=== PATIENT | male | born 1960 | race Caucasian/White ===

== ENCOUNTER → 2017-02-27 | Outpatient (CLI) | payer BC, MEDICARE ==
--- NOTE | 2017-02-27 14:35 | P.BASOAP ---
Subjective Principal diagnosis: Morbid obesity Patient doing well today. His surgery was approximately 10 months ago. His current weight is 174 his preoperative weight was 272. He has lost an additional 13 pounds since his last visit. Only intermittent rare episodes of heartburn. He does describe a rash beneath his pannus. No abdominal pain. Objective - Exam Abdomen: Soft, nondistended, nontender, mild rash beneath pannus Assessment/Plan (1) Morbid obesity Narrative/Plan: Check one year labs in April. Continue when necessary antiacid therapy. Patient will further investigate panniculectomy later this year. Plan: Date: Initial Weight: 123.377 kg Initial BMI: Current Weight: Current BMI: Type of Surgery: Total Volume in Band: Previous Volume: Volume Removed: Volume Added: Band Size:
[2017-02-27 15:48] VITALS: BP 119/82; PULSE 63; TEMP 98
== END | disposition home or self-care (01) ==
LOC: BARWHC3 13:36
PROVIDERS: ATTEND Surgery
DX: E66.01 Morbid (severe) obesity due to excess calories (principal)
CPT/HCPCS: 99211

== ENCOUNTER 2017-08-11 21:13 | Emergency (ER) | payer MEDICARE ==
[2017-08-11] MEDS ORDERED: MORPHINE SULFATE 10 MG/ML SYRINGE IM STA (22:35)
--- NOTE | 2017-08-11 22:55 | XR ---
EXAMINATION TYPE: XR Hip RT and AP Pelvis DATE OF EXAM: 08/11/2017 COMPARISON: NONE HISTORY: Right hip pain TECHNIQUE: 3 views FINDINGS: The pelvic ring appears intact. There is lower lumbar spine posterior fusion surgery noted. Sacroiliac joints appear normal. Proximal right femur and hip joint appear intact. Right hip joint s paces are fairly well-maintained. There is no sign of hip dysplasia. There is some spurring and calci fication at the greater trochanter of the right femur consistent with old injury. CONCLUSION: No acute bony abnormality. Calcification at the greater trochanter of the right femur could relate to some calcific bursitis. Normal hip joint space.
[2017-08-12] MEDS ORDERED: KETOROLAC 30 MG/ML 1 ML VIAL IM STA (00:18)
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
[2017-08-12 00:42] VITALS: BP 157/83; PULSE 53; RESP 18; TEMP 97.8
== END 2017-08-12 00:41 | disposition home or self-care (01) ==
LOC: EC 21:13
DX: M25.551 Pain in right hip (principal); J45.909 Unspecified asthma, uncomplicated; J44.9 Chronic obstructive pulmonary disease, unspecified; M70.71 Other bursitis of hip, right hip; G47.30 Sleep apnea, unspecified; Z99.89 Dependence on other enabling machines and devices; Z98.890 Other specified postprocedural states; Z87.891 Personal history of nicotine dependence; Z79.51 Long term (current) use of inhaled steroids; Z79.899 Other long term (current) drug therapy; Z88.1 Allergy status to other antibiotic agents; Z88.8 Allergy status to other drugs, medicaments and biological substances; Z91.013 Allergy to seafood
CPT/HCPCS: 99283 ×2; 96372 ×4; 73502; J2270; J1885

== ENCOUNTER → 2018-07-26 | Outpatient (CLI) | payer MEDICARE ==
--- NOTE | 2018-07-27 17:54 | CT ---
EXAMINATION TYPE: CT brain wo/w con DATE OF EXAM: 07/26/2018 COMPARISON: 06/30/2015 HISTORY: Headache and dizziness. CT DLP: 2153.1 mGycm Automated Exposure Control for Dose Reduction was Utilized. TECHNIQUE: CT scan of the head is performed with IV contrast.,CT scan of the head is performed withou t and with without and with IV Contrast, patient injected with 100ml mL of Isovue M300. FINDINGS: Noncontrast images show no acute intracranial hemorrhage or midline shift. Few punctate s cattered foci of hypoattenuation are seen within the subcortical and periventricular white matter. Th willy are most commonly on the basis of chronic microangiopathy. No vasogenic edema is seen. The ventri cles and sulci are within normal limits in size. Postcontrast images show no suspicious enhancing int raparenchymal mass. The globes are intact and the visualized sinuses are clear. IMPRESSION: Unremarkable contrast enhanced head CT exam. No evidence of intracranial mass.
== END | disposition home or self-care (01) ==
LOC: RADCTMAIN 17:41
PROVIDERS: ATTEND Family Medicine
DX: R51 Headache (principal)
CPT/HCPCS: 82565; 84520; 70470; 36415; Q9967

== ENCOUNTER → 2018-09-10 | Outpatient (CLI) | payer MEDICARE ==
--- NOTE | 2018-09-10 14:23 | US ---
EXAMINATION TYPE: US carotid duplex BILAT DATE OF EXAM: 09/10/2018 COMPARISON: NONE CLINICAL HISTORY: R42 Dizziness, R00.2 Palpitations; Head pain, prior smoker EXAM MEASUREMENTS: RIGHT: Peak Systolic Velocity (PSV) cm/sec ----- Right CCA: 95.5 ----- Right ICA: 58.9 ----- Right ECA: 83.7 ICA/CCA ratio: 0.6 RIGHT: End Diastole cm/sec ----- Right CCA: 28.5 ----- Right ICA: 22.2 ----- Right ECA: 16.3 LEFT: Peak Systolic Velocity (PSV) cm/sec ----- Left CCA: 86.7 ----- Left ICA: 64.8 ----- Left ECA: 59.6 ICA/CCA ratio: 0.7 LEFT: End Diastole cm/sec ----- Left CCA: 27.3 ----- Left ICA: 25.9 ----- Left ECA: 15.4 VERTEBRALS (direction of flow): Right Vertebral: Antegrade Left Vertebral: Antegrade Rhythm: Normal Very mild intimal wall thickening is noted at bilateral carotid bifurcation and PSV is wnl bilaterall y. IMPRESSION: Mild degree of grayscale atheromatous plaquing with no sonographically evident hemodynam ically significant stenosis within either visualized carotid arterial system. Criteria for Assigning % of Stenosis / Diameter reduction (Estimation based on the indirect measurements of the internal carotid artery velocities (ICA PSV). 1. Normal (no stenosis)=ICA PSV < 125 cm/s: ratio < 2.0: ICA EDV<40 cm/s. 2. Less than 50% stenosis=ICA PSV < 125 cm/s: ratio < 2.0: ICA EDV<40 cm/s. 3. 50 to 69% stenosis=ICA PSV of 125 to 230 cm/s: ration 2.0 ? 4.0: ICA EDV 40-100 cm/s. 4. Greater than 70% stenosis to near occlusion= ICA PSV > 230 cm/s: ratio > 4.0: ICA EDV > 100 cm/s. 5. Near occlusion= ICA PSV velocities may be low or undetectable: variable ratio and ICA EDV. 6. Total occlusion=unable to detect flow.
== END | disposition home or self-care (01) ==
LOC: RADECHMAIN 12:25
PROVIDERS: ATTEND Family Medicine
DX: I65.23 Occlusion and stenosis of bilateral carotid arteries (principal); R00.1 Bradycardia, unspecified; R00.0 Tachycardia, unspecified
CPT/HCPCS: 93225; 93226; 93880

== ENCOUNTER → 2018-12-18 | Day surgery (SDC) | payer MEDICARE ==
[2018-12-13 10:06] VITALS: BMI 25.0
--- NOTE | 2018-12-17 13:22 | HP ---
HISTORY AND PHYSICAL His surgery is scheduled for 12/18/2018. Morgan Trevino is a 58-year-old patient seen with progressive right shoulder pain. After having treatment options discussed, he elected to proceed with arthroscopy. Consent regarding the procedure was obtained. Clearance was provided by Dr. Cayden Reardon. PAST MEDICAL HISTORY: His past medical history is hypertension, rad-jjordro-korjveuvi diabetes, COPD. PAST SURGICAL HISTORY: Cholecystectomy, spine surgery, tonsillectomy, bariatric surgery. DAILY MEDICATIONS: 1. Aspirin. 2. Baclofen. 3. Gabapentin. 4. [place]. 5. Tramadol. ALLERGIES: KEFLEX, NEXIUM. SOCIAL HISTORY: He denies current tobacco use. PHYSICAL EVALUATION RIGHT SHOULDER: Flexion 100 degrees, abduction 70 degrees, external rotation is 70 degrees with some weakness. There is tenderness along the anterolateral acromion rotator cuff insertion site. Impingement sign is positive at 90 degrees. His distal neurovascular exam is intact. Radiographs of the shoulder revealed a type 2 anterior acromion and evidence for acromioclavicular joint osteoarthritis. A right shoulder MRI revealed tendinitis and labral tear. IMPRESSION: 1. Right shoulder impingement with possible rotator cuff tear. 2. Right shoulder adhesive capsulitis. 3. Right shoulder acromioclavicular osteoarthritis. 4. Right shoulder labral tear. PLAN: Right shoulder arthroscopy, subacromial decompression, possible arthroscopic rotator cuff repair, Rishi procedure, possible lysis of adhesions and debridement. MMODL / IJN: [id number] /
[~2018-12-18] MED LIST: CLINDAMYCIN 600 MG in DEXTROSE 5% IN WATER 50 ML IVPB ONE; DEXAMETHASONE SOD PHOSPHATE 10 MG/ML 1 ML VIAL IV ONE; HYDROmorphone 0.5 MG/0.5 ML SYRINGE IVP PRN; LACTATED RINGERS 1,000 ML IV ONE; LACTATED RINGERS 1,000 ML IV SCH; LIDOCAINE 1% 20 ML VIAL (10MG/ML) FOR IV START INTRADERMA PRN; MIDAZOLAM (PF) 2 MG/2 ML VIAL IV PRN; ONDANSETRON 4 MG/2 ML VIAL IVP ONE; PROPOFOL 10 MG/ML 20 ML VIAL IV ONE; ROPIVACAINE 5 MG/ML 30 ML VIAL ONE; SCOPOLAMINE 1.5MG/72HR PATCH TRANSDERM ONE; SUCCINYLCHOLINE CHLORIDE 100 MG/5 ML SYR IV ONE; fentaNYL (PF) 50 MCG/ML 2 ML AMP IV ONE; fentaNYL (PF) 50 MCG/ML 2 ML AMP ONE
[2018-12-18 09:21] VITALS: TEMP 96.8
--- NOTE | 2018-12-18 09:29 | P.OP ---
Date of Procedure: 12/18/18 Preoperative Diagnosis: Right shoulder impingement Postoperative Diagnosis: 1. Right shoulder rotator cuff tear 2. Right shoulder impingement 3. Right shoulder acromioclavicular joint osteoarthritis 4. Right shoulder partial long head biceps tendon tear Procedure(s) Performed: 1. Right shoulder arthroscopic rotator cuff repair 2. Right shoulder arthroscopic subacromial decompression 3. Right shoulder arthroscopic Rishi procedure 4. Right shoulder arthroscopic biceps tenotomy Implants: 15.5 Arthrex swivel lock anchor Anesthesia: GETA, regional (Interscalene block) Surgeon: David Benites Engine Pilot #1: Kavon Rahman Estimated Blood Loss (ml): 10 Pathology: none sent Condition: stable Disposition: PACU Indications for Procedure: 58-year-old patient seen with progressive right shoulder pain. After having treatment options discussed, he elected to proceed with arthroscopy. Operative Findings: See description of procedure Description of Procedure: Patient underwent an interscalene block by department of anesthesia. The patient was then taken to the operative suite. The patient underwent a general anesthetic by the department of anesthesia. The patient was placed into a lateral position and secured. There was appropriate padding of the bony prominence. Right shoulder was then prepped and draped in normal sterile orthopedic fashion. We placed the extremity in 10 pounds of longitudinal traction. A posterior incision was now made for a posterior working portal site. The trocar and cannula were inserted into the glenohumeral joint. Arthroscopy was initiated. Spinal needle was now inserted anteriorly, to ascertain the anterior working portal site. An incision was now made in that area, a trocar was inserted followed by a probe. There was some partial tearing of the long head biceps tendon. There was some mild fraying of the labrum. There was a rotator cuff tear visualized from glenohumeral side. There were grade 1 chondromalacia changes of the glenohumeral joint. I performed an arthroscopic biceps tenotomy. I debrided some of the superficial labral fraying with a motorized shaver. The residual labrum appeared stable. Instruments were now removed from glenohumeral joint. Utilizing the posterior working portal site, the trocar and cannula were inserted into the subacromial space. Arthroscopy initiated. I made an incision 2 fingerbreadths lateral to the acromion. I introduced my trocar followed by my ArthroCare ablator. I now began ablating thick subacromial bursal tissue, which exposed the undersurface of the anterior acromion. There was diminished subacromial space. There was a very prominent anterior acromion. A motorized bur was introduced and a subacromial decompression was performed. I also excised some osteophytes off the inferior aspect of the distal clavicle. The AC joint was visualized and noted to be fairly arthritic. The motorized bur was introduced in the anterior portal site and a Rishi procedure was performed without difficulty, decompressing the AC joint nicely. I turned my attention to the rotator cuff. There was a 11.5 cm tear along the anterior aspect of the distal supraspinatus. I debrided the margins with a motorized down to stable tendon tissue. I abraded the footprint with a motorized bur. I passed 2 everted mattress sutures through good bites of rotator cuff tendon. I now punched a hole in the air the footprint. The sutures were not passed through the eyelet of a 5.5 Arthrex swivel lock anchor. The eyelet was introduced and a pre-punch hole. Guevara LOPEZ no tension the sutures were held the anchor position and then introduced anchor compressing the tendon along the footprint nicely. Residual suture limbs were clipped. We had a good stable repair. I injected 1 mL Renue intra-articular. Instruments now removed from the portal sites. All portal sites were approximated with nylon suture. Sterile dressings were applied followed by a shoulder sling. Kavon LOPEZ assisted in this complex case. The patient was awakened, transferred to a bed, and taken to recovery in stable condition.
[2018-12-18 10:16] VITALS: RESP 18
[2018-12-18 11:06] VITALS: BP 131/88; PULSE 55
--- NOTE | 2018-12-20 13:24 | CDI ---
Date: 12/20/18 CDS/Head Of Physics Name: Jessica Montilla Phone: If any questions, call Zoraida Guzman [employer] Account Executive at [phone] Patient Name: Morgan Trevino Admit Date: 12/18/18 Discharge Date: 12/18/18 ATTENTION: The [facility] Coding Staff appreciate your assistance in clarifying documentation. Please respond to the clarification below the line at the bottom and electronically sign. The [facility] Coding staff will review the response and follow-up if needed. Please note: Queries are made part of the Legal Health Record. If you have any questions, please contact the [employer] Account Executive. Dear Dr. Benites, Please provide clarification as to why the interscalene block was provided. In order to select the correct CPT code and follow coding guidelines, please clarifiy if the interscalene was given for postoperative pain control or in additional to the general anesthesia for intraoperative pain control purposes. Thank you for your kind consideration. postoperative pain control MTDD
== END | disposition home or self-care (01) ==
LOC: OR 06:01
PROVIDERS: ATTEND Orthopaedic Surgery
DX: M75.101 Unspecified rotator cuff tear or rupture of right shoulder, not specified as traumatic (principal); M75.41 Impingement syndrome of right shoulder; S46.111A Strain of muscle, fascia and tendon of long head of biceps, right arm, initial encounter; X58.XXXA Exposure to other specified factors, initial encounter; M19.011 Primary osteoarthritis, right shoulder; M94.211 Chondromalacia, right shoulder; M25.711 Osteophyte, right shoulder; I10 Essential (primary) hypertension; E78.5 Hyperlipidemia, unspecified; E11.9 Type 2 diabetes mellitus without complications; R16.0 Hepatomegaly, not elsewhere classified; J44.9 Chronic obstructive pulmonary disease, unspecified; Z98.84 Bariatric surgery status; G47.33 Obstructive sleep apnea (adult) (pediatric); Z87.891 Personal history of nicotine dependence; Z98.1 Arthrodesis status; K21.9 Gastro-esophageal reflux disease without esophagitis; Z79.82 Long term (current) use of aspirin; Z79.891 Long term (current) use of opiate analgesic; Z79.899 Other long term (current) drug therapy; Z88.1 Allergy status to other antibiotic agents; Z88.8 Allergy status to other drugs, medicaments and biological substances
CPT/HCPCS: 29826; 29827; 29824; 64415; C1713; C1765; J1100; J2405; J3010; J2795; J0330; J2704; J2250

== ENCOUNTER 2019-03-19 10:06 | Day surgery (SDC) | payer MEDICARE ==
[2019-03-14 11:14] VITALS: BMI 24.3
[~2019-03-19 10:06] MED LIST changes: -CLINDAMYCIN 600 MG in DEXTROSE 5% IN WATER 50 ML IVPB ONE; -DEXAMETHASONE SOD PHOSPHATE 10 MG/ML 1 ML VIAL IV ONE; -HYDROmorphone 0.5 MG/0.5 ML SYRINGE IVP PRN; -LACTATED RINGERS 1,000 ML IV ONE; -MIDAZOLAM (PF) 2 MG/2 ML VIAL IV PRN; -ONDANSETRON 4 MG/2 ML VIAL IVP ONE; -PROPOFOL 10 MG/ML 20 ML VIAL IV ONE; -ROPIVACAINE 5 MG/ML 30 ML VIAL ONE; -SCOPOLAMINE 1.5MG/72HR PATCH TRANSDERM ONE; -SUCCINYLCHOLINE CHLORIDE 100 MG/5 ML SYR IV ONE; -fentaNYL (PF) 50 MCG/ML 2 ML AMP IV ONE; -fentaNYL (PF) 50 MCG/ML 2 ML AMP ONE
[2019-03-19 10:30] VITALS: TEMP 97.8
[2019-03-19] MEDS ORDERED: LACTATED RINGERS 1,000 ML IV ONE (10:37)
[2019-03-19 10:38] LABS: Glucose,Whole Blood 71 mg/dL (75-99)
[2019-03-19] MEDS ORDERED: LIDOCAINE 1% INJ 10MG/ML (20 ML MDV) ONE (11:28)
[2019-03-19] MEDS ORDERED: PROPOFOL 10 MG/ML 20 ML VIAL IV ONE (11:28)
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
--- NOTE | 2019-03-19 11:48 | P.PCN ---
Date of Procedure: 03/19/19 Procedure(s) Performed: PREOPERATIVE DIAGNOSIS: Abdominal pain, change in bowel habits POSTOPERATIVE DIAGNOSIS: Mild gastritis, small gastric polyp, diverticulosis PROCEDURE: 1. EGD with biopsy 2. Colonoscopy ANESTHESIA: MAC SURGEON: Burton Taylor M.D. SPECIMENS: Antrum, polyp ENDOSCOPIC PROCEDURE: The patient was on the endoscopy table in the left decubitus position. The Olympus gastroscope was inserted into the oropharynx and passed under direct visualization to the region of the third portion of the duodenum. From that point the scope was slowly withdrawn inspecting all surfaces carefully. There were no neoplastic inflammatory or polypoid lesions throughout the duodenum. The pylorus was widely patent. The stomach was carefully inspected. There was gastritis present. The patient also had a polyp at the start of the sleeve gastrectomy staple line. A biopsy of that took place. A biopsy of the antrum took place to rule out H. pylori. No retroflexion could take place. No visible hiatal hernia was seen. The esophagus was then carefully examined. There were no neoplastic inflammatory or polypoid lesions throughout the visualized esophagus. The patient was kept on the endoscopy table in the left decubitus position. The Olympus colonoscope was inserted into the anus and passed under direct visualization to the base of the cecum. The appendiceal orifice was visualized. From that point the scope was slowly withdrawn inspecting all surfaces carefully. There were no neoplastic inflammatory or polypoid lesions throughout the cecum, ascending, transverse, descending, sigmoid and rectum. There was mild diverticulosis noted. Digital rectal examination was normal. The patient was taken to the recovery room in stable condition per anesthesia guidelines. RECOMMENDATIONS: Increase fiber. Await biopsy results. Continue antiacids.
[2019-03-19 12:35] VITALS: BP 128/61; PULSE 56; RESP 18
== END 2019-03-19 12:46 | disposition home or self-care (01) ==
LOC: ORWHC2ENDO 10:06
PROVIDERS: ATTEND Surgery
DX: K57.90 Diverticulosis of intestine, part unspecified, without perforation or abscess without bleeding (principal); K29.50 Unspecified chronic gastritis without bleeding; K31.7 Polyp of stomach and duodenum; E78.5 Hyperlipidemia, unspecified; K21.9 Gastro-esophageal reflux disease without esophagitis; R55 Syncope and collapse; G47.30 Sleep apnea, unspecified; Z87.891 Personal history of nicotine dependence; E11.9 Type 2 diabetes mellitus without complications; E66.9 Obesity, unspecified; Z68.24 Body mass index [BMI] 24.0-24.9, adult; I10 Essential (primary) hypertension; Z87.01 Personal history of pneumonia (recurrent); J44.9 Chronic obstructive pulmonary disease, unspecified; R41.3 Other amnesia; Z90.49 Acquired absence of other specified parts of digestive tract; Z98.84 Bariatric surgery status; I25.2 Old myocardial infarction; M19.90 Unspecified osteoarthritis, unspecified site; Z99.89 Dependence on other enabling machines and devices; M21.371 Foot drop, right foot; Z80.3 Family history of malignant neoplasm of breast; Z80.6 Family history of leukemia; Z79.891 Long term (current) use of opiate analgesic; Z79.51 Long term (current) use of inhaled steroids; Z79.899 Other long term (current) drug therapy; Z88.1 Allergy status to other antibiotic agents; Z88.8 Allergy status to other drugs, medicaments and biological substances; Z91.09 Other allergy status, other than to drugs and biological substances
CPT/HCPCS: 88305; 45378; 43239; J2001; J2704

== ENCOUNTER → 2019-07-03 | Outpatient (CLI) | payer MEDICARE ==
--- NOTE | 2019-07-03 15:27 | XR ---
EXAMINATION TYPE: XR chest 2V DATE OF EXAM: 07/03/2019 COMPARISON: 01/19/16 HISTORY: Shortness of breath TECHNIQUE: Frontal and lateral views of the chest are obtained. FINDINGS: Scattered senescent parenchymal changes noted. Hyperinflation compatible with COPD. No evidence for infiltrate. No evidence for atelectasis. Heart size is stable. Mediastinal structures are stable and grossly unremarkable. No evidence for hilar prominence. Degenerative changes dorsal spine. IMPRESSION: 1. No evidence for acute pulmonary disease.
== END | disposition home or self-care (01) ==
LOC: RADXRMAIN 15:04
PROVIDERS: ATTEND Family Medicine
DX: J44.9 Chronic obstructive pulmonary disease, unspecified (principal)
CPT/HCPCS: 71046

== ENCOUNTER → 2019-07-16 | Outpatient (CLI) | payer MEDICARE ==
[2019-07-16 15:02] LABS: African American GFR (CKD) >90 (>60 ml/min/1.73 sqM); Blood Urea Nitrogen 20 mg/dL (9-20)
--- NOTE | 2019-07-16 15:32 | CT ---
EXAMINATION TYPE: CT brain w con DATE OF EXAM: 07/16/2019 COMPARISON: CT brain July 26, 2018 HISTORY: headaches, memory loss, dizziness. no injury. CT DLP: 1090.4 mGycm Automated exposure control for dose reduction was used. CONTRAST: CT scan of the head is performed with IV Contrast, patient injected with 100 mL of Isovue 300. FINDINGS: There is no abnormal enhancing mass or midline shift identified. The ventricles and sulci are within normal limits in size. Meng-white matter differentiation is preserved. Persistent hypoplastic left A 1 segment with filling of A2 segment due to patent anterior communicating artery, normal variant. Und er pneumatized left mastoid air cells are redemonstrated versus the opposite right-side. The globes a re intact and the visualized sinuses are clear. IMPRESSION: No abnormal enhancing mass or midline shift. No significant change from prior CT
== END | disposition home or self-care (01) ==
LOC: RADCTMAIN 14:09
PROVIDERS: ATTEND Family Medicine
DX: R51 Headache (principal)
CPT/HCPCS: 82565; 84520; 70460; 36415; Q9967

== ENCOUNTER → 2019-07-25 | Outpatient (CLI) | payer MEDICARE ==
--- NOTE | 2019-07-26 01:09 | MR ---
EXAMINATION TYPE: MR brain wo con DATE OF EXAM: 07/25/2019 COMPARISON: 07/16/[address] scan HISTORY: Headaches, memory loss Standard multiplanar, multisequence MRI departmental protocol Multiplanar, multisequence images of the brain were acquired. Diffusion weighted imaging was performe d. FINDINGS: Ventricles of normal size. There is no mass effect nor midline shift. There is no sign of i ntracranial hemorrhage. Diffusion images are normal. There is no evidence of cortical infarct. Brains tem appears normal. Cerebellum appears normal. There are 3 or 4 small 2 to 3 mm foci of increased sig nal on the FLAIR images in the white matter of the frontal lobes and left posterior temporal lobe. Corpus callosum appears normal. Sella turcica appears normal. IMPRESSION: There are a few very small white matter high signal foci of doubtful significance. Otherwise negative exam. No evidence of cortical infarct.
== END ==
LOC: RADMRIMAIN 21:22
PROVIDERS: ATTEND Family Medicine
DX: R51 Headache (principal); R90.82 White matter disease, unspecified
CPT/HCPCS: 70551

== ENCOUNTER → 2019-08-29 | Outpatient (CLI) | payer MEDICARE ==
--- NOTE | 2019-08-29 11:47 | ECHOF ---
Referral Reason:R07.9 Chest Pain MEASUREMENTS -------- HEIGHT: 170.2 cm WEIGHT: 72.6 kg BP: 134/78 RVIDd: 3.0 cm (< 3.3) IVSd: 1.3 cm (0.6 - 1.1) LVIDd: 4.1 cm (3.9 - 5.3) LVPWd: 1.3 cm (0.6 - 1.1) IVSs: 1.5 cm LVIDs: 2.8 cm LVPWs: 1.3 cm LA Diam: 3.4 cm (2.7 - 3.8) LAESV Index (A-L): 21.25 ml/m Ao Diam: 3.1 cm (2.0 - 3.7) AV Cusp: 2.4 cm (1.5 - 2.6) MV EXCURSION: 14.577 mm (> 18.000) MV EF SLOPE: 57 mm/s (70 - 150) EPSS: 0.4 cm MV E Mingo: 0.43 m/s MV DecT: 426 ms MV A Mingo: 0.63 m/s MV E/A Ratio: 0.69 TAPSE: 28.76 mm FINDINGS -------- Sinus rhythm. This was a technically good study. The left ventricular size is normal. There is mild concentric left ventricular hypertrophy. Overa ll left ventricular systolic function is normal with, an EF between 60 - 65 %. The diastolic fillin g pattern is normal for the age of the patient 5.71. The right ventricle is normal in size. Normal LA size by volume 22+/-6 ml/m2. The right atrium is normal in size. Interatrial and interventricular septum intact. The aortic valve is trileaflet and appears structurally normal. There is trace to mild mitral regurgitation. Trace tricuspid regurgitation present. There is no pulmonic regurgitation present. The aortic root size is normal. Normal inferior vena cava with normal inspiratory collapse consistent with estimated right atrial pre ssure of 5 mmHg. There is no pericardial effusion. CONCLUSIONS -------- 1. Sinus rhythm. 2. This was a technically good study. 3. The left ventricular size is normal. 4. There is mild concentric left ventricular hypertrophy. 5. Overall left ventricular systolic function is normal with, an EF between 60 - 65 %. 6. The diastolic filling pattern is normal for the age of the patient 5.71 7. The right ventricle is normal in size. 8. Normal LA size by volume 22+/-6 ml/m2. 9. The right atrium is normal in size. 10. Interatrial and interventricular septum intact. 11. The aortic valve is trileaflet and appears structurally normal. 12. There is trace to mild mitral regurgitation. 13. Trace tricuspid regurgitation present. 14. There is no pulmonic regurgitation present. 15. The aortic root size is normal. 16. Normal inferior vena cava with normal inspiratory collapse consistent with estimated right atrial pressure of 5 mmHg. 17. There is no pericardial effusion. EMPLOYEE TRAINING SPECIALIST: Erika Gamboa RDCS
== END | disposition home or self-care (01) ==
LOC: RADECHMAIN 08:11
PROVIDERS: ATTEND Family Medicine
DX: I34.0 Nonrheumatic mitral (valve) insufficiency (principal); R07.9 Chest pain, unspecified
CPT/HCPCS: 93306

== ENCOUNTER → 2019-09-12 | Outpatient (CLI) | payer MEDICARE ==
[~2019-09-12] MED LIST changes: -LACTATED RINGERS 1,000 ML IV SCH; -LIDOCAINE 1% 20 ML VIAL (10MG/ML) FOR IV START INTRADERMA PRN; +REGADENOSON 0.4 MG/5 ML SYRINGE IV ONE
--- NOTE | 2019-09-12 13:22 | EST ---
EXERCISE STRESS DATE OF SERVICE: 09/12/2019 AGE: 59 SEX: Male HT: 67" WT: 166 pounds PROTOCOL: Lexiscan Cardiolite STAGE: DURATION OF EXERCISE: HEART RATE REST: 46 BLOOD PRESSURE REST: 132/79 MAXIMUM HEART RATE ACHIEVED: 67 MAXIMUM BLOOD PRESSURE: 120/73 85% MPHR: 138 100% MPHR: 162 METS: INDICATIONS: Chest pain. CLINICAL INFORMATION: Baseline EKG revealed normal sinus rhythm without significant ST-T changes. With Lexiscan administration, heart rate changed of 46 to 67 beats per minute. Blood pressure changed from 132/79 to 120/73. EKG did not reveal any ST-segment changes to indicate ischemia. By EKG criteria, this is an unremarkable stress test with Lexiscan administration. The nuclear scan results which are more pertinent will be reported by the radiologist. MMTUAN / JOSEN: [id number] /
--- NOTE | 2019-09-12 13:31 | NM ---
EXAMINATION TYPE: NM stress lexiscan cardiolite DATE OF EXAM: 09/12/2019 COMPARISON: NONE HISTORY: Chest pain TECHNIQUE: After the intravenous administration of 10.17 mCi Tc 99m Sestamibi - Cardiolite resting S PECT images acquired 55 minutes post injection. The patient received 0.4mg Lexiscan, 26.1 mCi Tc 99m Sestamibi - Stress images obtained [address] injection FINDINGS: Review of stress and rest SPECT images demonstrates no distinct perfusion abnormality. Very mild phy siologic apical thinning. Gated analysis shows normal wall motion with an estimated left ventricular ejection fraction of 56 %. TID is within normal limits calculated at 0.95. IMPRESSION: No scintigraphic evidence for reversible ischemia.
== END ==
LOC: RADNMMAIN 07:49
PROVIDERS: ATTEND Family Medicine
DX: R07.9 Chest pain, unspecified (principal)
CPT/HCPCS: 93017; 78452; A9500

== ENCOUNTER 2020-09-01 12:06 | Emergency (ER) | payer MEDICARE ==
--- NOTE | 2020-09-01 13:14 | XR ---
EXAMINATION TYPE: XR chest 2V DATE OF EXAM: 09/01/2020 COMPARISON: 07/03/2019 HISTORY: 60-year-old male difficulty breathing and fevers TECHNIQUE: PA and lateral views FINDINGS: Heart normal size. Aorta and pulmonary vasculature within normal limits. New airspace disease in the right mid lung. No pleural effusions. IMPRESSION: New infiltrate at the right mid lung. Correlate for pneumonia.
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
[2020-09-01 13:57] LABS: Basophils # (A) 0.1 k/uL (0-0.2); Basophils % (A) 0 %; Eosinophils # (A) 0.1 k/uL (0-0.7); Eosinophils % (A) 1 %; HCT 44.9 % (39.0-53.0); HGB 14.9 gm/dL (13.0-17.5); Lymphocytes # (A) 1.2 k/uL (1.0-4.8); Lymphocytes % (A) 7 %; MCH 30.9 pg (25.0-35.0); MCHC 33.3 g/dL (31.0-37.0); Mean Platelet Volume 8.9; Monocytes # (A) 0.8 k/uL (0-1.0); Monocytes % (A) 5 %; Neutrophils # (A) 14.4 k/uL (1.3-7.7); Neutrophils % (A) 86 %; Platelet Count 232 k/uL (150-450); RBC 4.84 m/uL (4.30-5.90); RDW 12.4 % (11.5-15.5); WBC 16.7 k/uL (3.8-10.6)
[2020-09-01 14:04] LABS: MCV 92.8 fL (80.0-100.0)
[2020-09-01 14:06] LABS: ALT 13 U/L (4-49); AST 25 U/L (17-59); African American GFR (CKD) >90 (>60 ml/min/1.73 sqM); Albumin 3.9 g/dL (3.5-5.0); Alkaline Phosphatase 83 U/L (38-126); Anion Gap 5 mmol/L; Blood Urea Nitrogen 17 mg/dL (9-20); Calcium 8.8 mg/dL (8.4-10.2); Carbon Dioxide 25 mmol/L (22-30); Chloride 106 mmol/L (98-107); Creatine Kinase 135 U/L (55-170); Glucose 89 mg/dL (74-99); INR 0.9 (<1.2); Magnesium 1.9 mg/dL (1.6-2.3); Non-African American GFR(CKD) >90 (>60 ml/min/1.73 sqM); Potassium 4.1 mmol/L (3.5-5.1); Sodium 136 mmol/L (137-145); Total Bilirubin 0.8 mg/dL (0.2-1.3); Total Protein 6.8 g/dL (6.3-8.2)
[2020-09-01 14:07] LABS: Partial Thromboplastin Time 24.4 sec (22.0-30.0); Prothrombin Time 9.8 sec (9.0-12.0)
[2020-09-01] MEDS ORDERED: AZITHROMYCIN 500 MG TAB PO STA (14:53)
[2020-09-01 15:04] VITALS: BP 136/89; PULSE 83; RESP 17; TEMP 98.2
== END 2020-09-01 15:29 | disposition home or self-care (01) ==
LOC: EC 12:06
DX: J18.9 Pneumonia, unspecified organism (principal); J44.9 Chronic obstructive pulmonary disease, unspecified; K21.9 Gastro-esophageal reflux disease without esophagitis; G47.30 Sleep apnea, unspecified; I25.2 Old myocardial infarction; Z79.51 Long term (current) use of inhaled steroids; Z79.899 Other long term (current) drug therapy; Z88.1 Allergy status to other antibiotic agents; Z91.018 Allergy to other foods; Z88.8 Allergy status to other drugs, medicaments and biological substances; Z87.891 Personal history of nicotine dependence; Z99.89 Dependence on other enabling machines and devices
CPT/HCPCS: 36415; 71046; 80053; 82550; 83605; 83735; 83880; 84484; 85025; 85610; 85730; 87040; 93005; 99285

== ENCOUNTER → 2020-09-07 | Outpatient (CLI) | payer MEDICARE | END | disposition home or self-care (01) | LOC: LABWHC1 11:16 | PROVIDERS: ATTEND Family Medicine | DX: Z03.818 Encounter for observation for suspected exposure to other biological agents ruled out (principal) | CPT/HCPCS: U0003; C9803 ==

== ENCOUNTER → 2020-11-11 | Outpatient (CLI) | payer MEDICARE ==
--- NOTE | 2020-11-11 16:10 | CTL ---
EXAMINATION TYPE: CT Low Dose Lung DATE OF EXAM ORDERED: 11/11/2020 HISTORY: 60-year-old male Personal history of tobacco use.. Lung cancer screening CT DLP: 89.[address] CTDI: 2.6 mGy Automated exposure control for dose reduction was used. SCREENING VISIT: Baseline COMPARISON: HRCT from 03/18/2015 TECHNIQUE: Low dose computed tomography scan was performed through the chest at 1 mm thick sections a nd reconstructed images in the coronal and sagittal plane. Additional coronal MIP reconstruction was performed. CT DIAGNOSTIC QUALITY: Satisfactory FINDINGS: Heart normal size without pericardial effusion. Minimal scattered LAD and RCA coronary artery calcifi cations. Ectatic ascending aorta 3.7 cm. In dimension arch vessel branching anatomy. Scattered nonenlarged mediastinal lymph nodes. No thoracic lymphadenopathy by CT size criteria. Moderate to advanced upper lung centrilobular and paraseptal emphysema. Scattered subpleural reticula tion suggesting interstitial scarring. Scattered small calcified granulomas. 6 mm posterior right lower lobe pulmonary nodule, axial image 12 and coronal MIP series 10 image 44. Unable to identify on the previous HRCT. No consolidation or pleural effusion. There is a moderate-sized hilar hernia with surgical material related to sleeve gastrectomy. Some of the surgical material is also included in the hiatal hernia. Bones: Mild anterior endplate spondylosis mid to lower thoracic spine. IMPRESSION: 1. LungRADS Category 3 (probably benign, 1-2% chance of malignancy). 6 mm right lower lobe pulmonary nodule. 2. COPD with moderate to advanced upper lung emphysema and prior granulomatous disease. 3. Moderate-sized hiatal hernia. Some of the surgical material of the patient's sleeve gastrectomy is included in the hernia. RECOMMENDATION: 1. Six-month follow-up low-dose CT chest for the 6 mm right lower lobe pulmonary nodule. 2. If the patient's hiatal hernia there is symptomatic (for instance, if the patient is experiencing gastroesophageal reflux disease), refer the patient back to their surgeon. 3. Smoking cessation. CT LUNG RAD AND CT CHEST RECOMMENDATION: Lung-Rad 3 Probably Benign: 6 month follow-up LDCT.
== END | disposition home or self-care (01) ==
LOC: RADCTMAIN 13:34
PROVIDERS: ATTEND Family Medicine
DX: Z12.2 Encounter for screening for malignant neoplasm of respiratory organs (principal); R91.1 Solitary pulmonary nodule; Z87.891 Personal history of nicotine dependence
CPT/HCPCS: 71271

== ENCOUNTER 2021-07-15 16:58 | Observation (INO) | payer MEDICARE ==
[2021-07-15 18:00] VITALS: TEMP 99.3
[2021-07-15 19:45] VITALS: RESP 16
[2021-07-15] MEDS ORDERED: NITROGLYCERIN SL TABS 0.4 MG TAB SUBLINGUAL STA (19:47)
[2021-07-15 20:30] LABS: Basophils # (A) 0.1 k/uL (0-0.2); Basophils % (A) 1 %; Eosinophils # (A) 0.1 k/uL (0-0.7); Eosinophils % (A) 1 %; HCT 42.7 % (39.0-53.0); HGB 13.7 gm/dL (13.0-17.5); Lymphocytes # (A) 1.1 k/uL (1.0-4.8); Lymphocytes % (A) 12 %; MCH 30.7 pg (25.0-35.0); MCHC 32.2 g/dL (31.0-37.0); MCV 95.5 fL (80.0-100.0); Mean Platelet Volume 8.9; Monocytes # (A) 0.5 k/uL (0-1.0); Monocytes % (A) 6 %; Neutrophils # (A) 6.9 k/uL (1.3-7.7); Neutrophils % (A) 79 %; Platelet Count 223 k/uL (150-450); RBC 4.46 m/uL (4.30-5.90); RDW 12.3 % (11.5-15.5); WBC 8.8 k/uL (3.8-10.6)
[2021-07-15 20:41] LABS: ALT 16 U/L (4-49); AST 27 U/L (17-59); African American GFR (CKD) >90 (>60 ml/min/1.73 sqM); Albumin 3.8 g/dL (3.5-5.0); Alkaline Phosphatase 81 U/L (38-126); Anion Gap 6 mmol/L; Blood Urea Nitrogen 19 mg/dL (9-20); Calcium 9.1 mg/dL (8.4-10.2); Carbon Dioxide 26 mmol/L (22-30); Chloride 105 mmol/L (98-107); Glucose 86 mg/dL (74-99); Magnesium 1.8 mg/dL (1.6-2.3); Non-African American GFR(CKD) >90 (>60 ml/min/1.73 sqM); Potassium 3.9 mmol/L (3.5-5.1); Sodium 137 mmol/L (137-145); Total Bilirubin 0.8 mg/dL (0.2-1.3); Total Protein 6.7 g/dL (6.3-8.2)
[2021-07-15 20:44] LABS: Partial Thromboplastin Time 23.7 sec (22.0-30.0); Prothrombin Time 10.4 sec (9.0-12.0)
--- NOTE | 2021-07-15 21:56 | XR ---
EXAMINATION TYPE: XR chest 2V DATE OF EXAM: 07/15/2021 COMPARISON: Chest radiograph 09/01/2020 HISTORY: Chest pain. TECHNIQUE: Frontal and lateral views of the chest are obtained. FINDINGS: There is increasing reticular opacity over the right greater than left lower lungs. There is increasing opacity over the right hilum. No pleural effusion, or pneumothorax seen. The cardiac silhouette size is within normal limits. The re is flattening of the diaphragm. The osseous structures are intact. IMPRESSION: Increasing opacity over the right hilum. Although this may relate to prominent pulmonary vasculature given the background emphysematous changes underlying mass cannot be excluded and a chest CT should be considered.
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
[2021-07-15] MEDS ORDERED: NITROGLYCERIN SL TABS 0.4 MG TAB SUBLINGUAL PRN (22:55)
[2021-07-16 00:11] VITALS: BP 139/93
[2021-07-16] MEDS ORDERED: ACETAMINOPHEN TAB 500 MG TAB PO STA (01:58)
[2021-07-16] MEDS ORDERED: GABAPENTIN 400 MG CAP PO STA (01:58)
[2021-07-16] MEDS ORDERED: BACLOFEN 10 MG TAB PO STA (01:59)
[2021-07-16] MEDS ORDERED: ALBUTEROL NEBULIZED 2.5 MG/3 ML INHALATION PRN (07:40)
[2021-07-16] MEDS ORDERED: SYMBICORT 160-4.5 MCG INHALER INHALATION SCH (08:00)
[2021-07-16] MEDS ORDERED: FAMOTIDINE 20 MG TAB PO SCH (09:00)
[2021-07-16] MEDS ORDERED: ASPIRIN 325 MG TAB PO SCH (09:00)
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
[2021-07-16 09:42] LABS: Glucose,Whole Blood 81 mg/dL (75-99)
[2021-07-16 10:56] VITALS: PULSE 76
[2021-07-16 14:55] LABS: Chol/HDL Ratio 3.4; LDL Cholesterol,Calculated 83.6 mg/dL (0.0-131.0); VLDL Calculation 19.4 mg/dL (5.00-40.00)
--- NOTE | 2021-07-16 17:06 | HP ---
HISTORY AND PHYSICAL COMBINATION HISTORY AND PHYSICAL AND DISCHARGE SUMMARY: CHIEF COMPLAINT: Chest pain. HISTORY OF PRESENT ILLNESS: This 61-year-old gentleman with a past medical history of multiple medical problems, including asthma, COPD, diabetes, GERD, hypertension, memory impairment, DJD, being followed by Dr. Cayden Reardon in the outpatient setting, was admitted with chest pain. The pain was felt in the lower part of the chest, ongoing for the last several days. The patient also had pain in the left upper chest. Patient came to [facility]. Troponins were negative. Cardiology evaluated the patient and recommended outpatient followup. Basic labs were also negative. The patient apparently had a stress test last year, also. There is no history of any fever, rigors or chills. No history of headache, loss of consciousness, seizures. PAST MEDICAL HISTORY: History of asthma, COPD, diabetes, GERD, hypertension, memory impairment, history of DJD. HOME MEDICATIONS: Reviewed. They include zinc, Aleve, Tums, Tylenol, vitamin C, calcium, vitamin D3, vitamin A, multivitamin, Pepcid, Symbicort, Requip, Singulair, Lioresal, Neurontin, Ventolin HFA. Doses are noted. ALLERGIES: KEFLEX,, NEXIUM, FISH OIL. FAMILY HISTORY: History of leukemia in the family. SOCIAL HISTORY: Previous history of smoking. No current smoking or alcohol intake. REVIEW OF SYSTEMS: ENT: No diminished hearing. No diminished vision. CARDIOVASCULAR SYSTEM: As mentioned earlier. RESPIRATORY SYSTEM: As mentioned earlier. GI: As mentioned earlier. : No dysuria. NERVOUS SYSTEM: No numbness, weakness. ALLERGY/IMMUNOLOGY: No asthma or hay fever. MUSCULOSKELETAL: As mentioned earlier. HEMATOLOGY/ONCOLOGY: No history of anemia. ENDOCRINE: As mentioned earlier. CONSTITUTIONAL: As mentioned earlier. DERMATOLOGY: Negative. RHEUMATOLOGY: Negative. PSYCHIATRY: As mentioned earlier. PHYSICAL EXAMINATION: Patient alert and oriented x3. Pulse is 76, blood pressure 139/63, respirations 16, temperature 98.3, pulse ox 96% on room air. HEENT: Conjunctivae normal. NECK: No jugular venous distention. CARDIOVASCULAR: S1, S2 muffled. RESPIRATION: Breath sounds diminished at the bases. No rhonchi. No crackles. ABDOMEN: Soft, nontender. No mass palpable. LEGS: No edema. No swelling. NERVOUS SYSTEM: Higher functions as mentioned earlier. Moves all 4 limbs. No focal motor or sensory deficit. LYMPHATICS: No lymph node palpable in neck, axillae or groin. SKIN: No ulcer, rash, bleeding. JOINTS: No active deforming arthropathy. LABS: CBC, CMP within normal limits. ASSESSMENT: 1. Chest pain, possible unstable angina. Rule out coronary artery disease. Myocardial infarction ruled out. 2. History of asthma, chronic obstructive pulmonary disease. 3. Diabetes mellitus, type 2. 4. Gastroesophageal reflux disease. 5. Hypertension. 6. History of memory impairment. 7. History of degenerative joint disease. 8. History of pneumonia. 9. History of sleep apnea. 10.History of back surgery. 11.History of bariatric surgery. 12.Remote history of nicotine dependence. RECOMMENDATIONS AND DISCUSSION: In this 61-year-old gentleman who presented with multiple complex medical issues, at this time I recommend to continue current treatment. Cardiology recommended discharge home and continue the rest of the medications. Patient is keen on going home. Moreover, the troponins are also negative. Recommend outpatient followup with Cardiology and a possible stress test also. A copy of this dictation is being forwarded to Dr. Cayden Reardon, with whom I also recommend close followup in the outpatient setting. MMODL / IJN: [id number] / MTDAlba
[2021-07-16] MEDS ORDERED: MONTELUKAST 10 MG TAB PO SCH (21:00)
== END 2021-07-16 12:00 | disposition home or self-care (01) ==
LOC: EC 16:58 → 6NMEDSUR 23:19
PROVIDERS: ADMIT Hospitalist; ATTEND Hospitalist
DX: R07.89 Other chest pain (principal); Z20.822 Contact with and (suspected) exposure to COVID-19; E11.9 Type 2 diabetes mellitus without complications; E78.5 Hyperlipidemia, unspecified; I10 Essential (primary) hypertension; I25.2 Old myocardial infarction; J44.9 Chronic obstructive pulmonary disease, unspecified; K21.9 Gastro-esophageal reflux disease without esophagitis; M19.90 Unspecified osteoarthritis, unspecified site; Z79.51 Long term (current) use of inhaled steroids; Z79.899 Other long term (current) drug therapy; Z80.6 Family history of leukemia; Z87.01 Personal history of pneumonia (recurrent); Z87.891 Personal history of nicotine dependence; Z98.84 Bariatric surgery status
CPT/HCPCS: 99285; 36415; 93005; 85379; 80061; 80053; 83735; 84484 ×2; 85025; 85610; 85730; 87635; 71046; G0378 ×2

== ENCOUNTER → 2021-08-09 | Outpatient (CLI) | payer MEDICARE ==
--- NOTE | 2021-08-09 20:40 | CT ---
EXAMINATION TYPE: CT chest wo con DATE OF EXAM: 08/09/2021 COMPARISON: X-ray 07/15/2021, CT scan 11/11/2020 HISTORY: COPD, right lung nodule on xray CT DLP: 360.8 mGycm. Automated Exposure Control for Dose Reduction was Utilized. TECHNIQUE: CT scan of the thorax is performed without IV contrast. FINDINGS: LUNGS: Moderate to advanced upper lung centrilobular and paraseptal emphysema. Scattered subpleural r eticulation suggesting interstitial scarring. Scattered small calcified granulomas. 6 mm posterior ri ght lower lobe pulmonary nodule. No consolidation or pleural effusion. No pneumothorax. Subsegmental changes are seen posteriorly in the right upper and lower lobe groundglass changes are seen also not ed scattered throughout the lungs. 6 mm right lower lobe pulmonary nodule appears stable. Additional 2 mm nodule left lower lobe axial image 4. Subpleural nodularity measuring 6 mm left upper lobe appea rs somewhat more elongated on mid coronal image and likely inflammatory. Suspect a calcified nodule l eft upper lobe image 30 likely representing tiny granuloma. Additional 1 to 2 mm nodule axial image 2 9 left upper lobe. 2 mm subpleural nodule right upper lobe axial image #40. 2 mm nodule superior segm ent left lower lobe axial image 44. . MEDIASTINUM: Lack of IV contrast is noted to limit evaluation for mediastinal and especially hilar ad enopathy. There are no definitive greater than 1 cm hilar or mediastinal lymph nodes. No cardiomega ly or pericardial effusion is seen. Thoracic aorta measures 3. Centimeters compatible with ectasia. C oronary artery calcifications noted. OTHER: There is a moderate-sized hilar hernia with surgical material related to sleeve gastrectomy. Some of the surgical material is also included in the hiatal hernia. Hypertrophic and degenerative ch trice of spine. Postcholecystectomy changes noted. Ectasia versus mild aneurysmal dilation of the sple cornelius artery noted maximal dimension of 9 mm IMPRESSION: 1. Advanced emphysematous changes with multiple subcentimeter pulmonary nodules as discussed above. T he previously noted 6 mm right-sided pulmonary nodule stable. There are additional 5 mm areas of nodu larity which may not have been present on the prior exam which are too small to characterize but like ly benign. 2. There is a 8 mm subpleural nodule left upper lobe which appears somewhat more elongated on the cor onal view and may represent an area of inflammatory change rather than pulmonary nodule. Given its gr eater than 6 mm, recommend a short-term follow-up 3-[address] to confirm stability. Alternatively, P ET scan could be obtained. 3. Areas of groundglass changes and subsegmental consolidation may be on the basis of an atelectasis correlate clinically to exclude pneumonitis. 4. 9 mm splenic artery aneurysm.
== END | disposition home or self-care (01) ==
LOC: RADCTMAIN 18:22
PROVIDERS: ATTEND Family Medicine
DX: J44.9 Chronic obstructive pulmonary disease, unspecified (principal); R91.8 Other nonspecific abnormal finding of lung field
CPT/HCPCS: 71250

== ENCOUNTER → 2021-08-10 | Outpatient (CLI) | payer MEDICARE ==
--- NOTE | 2021-08-11 11:31 | ECHOF ---
Referral Reason:I10 Essential (primary) hypertension MEASUREMENTS -------- HEIGHT: 170.2 cm WEIGHT: 77.1 kg BP: 136/85 IVSd: 1.0 cm (0.6 - 1.1) LVIDd: 4.8 cm (3.9 - 5.3) LVPWd: 1.1 cm (0.6 - 1.1) EDV(Teich): 105 ml IVSs: 1.3 cm LVIDs: 3.2 cm LVPWs: 1.5 cm %IVS Thck: 31 % ESV(Teich): 40 ml EF(Teich): 62 % %FS: 34 % SV(Teich): 65 ml LA Diam: 3.6 cm (2.7 - 3.8) RVIDd: 3.1 cm (< 3.3) LALs A4C: 4.9 cm LAAs A4C: 16.7 cm LAESV A-L A4C: 48 ml LAESV MOD A4C: 47 ml LALs A2C: 5.0 cm LAAs A2C: 13.8 cm LAESV A-L A2C: 32 ml LAESV MOD A2C: 31 ml LAESV(A-L): 39 ml LAESV Index (A-L): 20.89 ml/m Ao Diam: 3.3 cm (2.0 - 3.7) AV Cusp: 1.9 cm (1.5 - 2.6) EPSS: 0.3 cm MV E [place]: 0.72 m/s MV DecT: 279 ms MV Dec [place]: 2.6 m/s MV A [place]: 0.56 m/s MV E/A Ratio: 1.30 MV PHT: 81 ms AV Vmax: 1.19 m/s AV maxP.62 mmHg AV Vmax: 1.21 m/s AV Vmean: 0.81 m/s AV maxP.83 mmHg AV meanP.93 mmHg AV Env.Ti: 309 ms AV VTI: 25.0 cm MV EF SLOPE: 110.96 mm/s (70 - 150) MV EXCURSION: 19.44 mm (> 18.000) FINDINGS -------- Sinus rhythm. This was a technically adequate study. The left ventricular size is normal. There is borderline concentric left ventricular hypertrophy. Overall left ventricular systolic function is normal with, an EF between 60 - 65 %. The right ventricle is normal in size. Normal LA size by volume 22+/-6 ml/m2. The right atrium is normal in size. Interatrial and interventricular septum intact. The aortic valve is trileaflet, and appears structurally normal. No aortic stenosis or regurgitation. There is trace to mild mitral regurgitation. The tricuspid valve appears structurally normal. Unable to estimate RVSP due to inadequate TR jet s pectral doppler profile. The pulmonic valve was not well visualized. The aortic root size is normal. Normal inferior vena cava with normal inspiratory collapse consistent with estimated right atrial pre ssure of 5 mmHg. There is no pericardial effusion. CONCLUSIONS -------- 1. The left ventricular size is normal. 2. There is borderline concentric left ventricular hypertrophy. 3. Overall left ventricular systolic function is normal with, an EF between 60 - 65 %. 4. The aortic valve is trileaflet, and appears structurally normal. No aortic stenosis or regurgitati on. 5. There is trace to mild mitral regurgitation. 6. There is no pericardial effusion. [employer]FT MAINTENANCE TECHNICIAN: Erika Gamboa RDCS
== END | disposition home or self-care (01) ==
LOC: RADECHMAIN 13:48
PROVIDERS: ATTEND Family Medicine
DX: I34.0 Nonrheumatic mitral (valve) insufficiency (principal); I51.7 Cardiomegaly; I10 Essential (primary) hypertension
CPT/HCPCS: 93306

== ENCOUNTER 2021-08-12 13:22 | Emergency (ER) | payer MEDICARE ==
[2021-08-12 13:40] VITALS: RESP 18; TEMP 98.1
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
[2021-08-12] MEDS ORDERED: CASIRIVIMAB (REGN10933) (EUA) 600 MG, IMDEVIMAB (REGN10987) (EUA) 600 MG in SODIUM CHLO... IVPB ONE (14:30)
[2021-08-12] MEDS ORDERED: SODIUM CHLORIDE 0.9% 50 ML IVPB ONE (14:30)
[2021-08-12 15:10] VITALS: BP 124/88; PULSE 66
== END 2021-08-12 15:58 | disposition home or self-care (01) ==
LOC: EC 13:22
DX: U07.1 COVID-19 (principal); J44.9 Chronic obstructive pulmonary disease, unspecified; E11.9 Type 2 diabetes mellitus without complications; K21.9 Gastro-esophageal reflux disease without esophagitis; I10 Essential (primary) hypertension; I25.2 Old myocardial infarction; M19.90 Unspecified osteoarthritis, unspecified site; Z88.1 Allergy status to other antibiotic agents; Z98.84 Bariatric surgery status; Z90.49 Acquired absence of other specified parts of digestive tract; Z87.891 Personal history of nicotine dependence
CPT/HCPCS: 99283

== ENCOUNTER → 2021-09-12 | Outpatient (CLI) | payer MEDICARE ==
[~2021-09-12] MED LIST changes: -REGADENOSON 0.4 MG/5 ML SYRINGE IV ONE; +REGADENOSON 0.4 MG/5 ML SYRINGE IV PRN
--- NOTE | 2021-09-12 10:33 | P.STRESS ---
- Stress Test Note Stress Test Results/Findings: Exam Performed: Exam Date: Reason for Exam: Height: Weight: Protocol: Stage: Duration of Exercise: Resting Heart Rate: Resting Blood Pressure: Maximum Achieved Heart Rate: Maximum Achieved Blood Pressure: 85% PMHR: 100% PMHR: METS: Technologist Comment: Stress Test Results/Findings: At baseline EKG showed normal sinus rhythm, normal axis, no significant ST or T- wave abnormalities. Patient recieved IV infusion of Lexiscan 0.4mg and at peak infusion EKG showed no significant change from baseline. Conclusions: 1. Normal EKG response to Lexiscan infusion 2. Nuclear imaging to be reported separately.
--- NOTE | 2021-09-12 14:14 | NM ---
EXAMINATION TYPE: NM stress lexiscan cardiolite DATE OF EXAM: 09/12/2021 COMPARISON: Prior stress tests September 12, 2019 HISTORY: Chest pain. TECHNIQUE: After the intravenous administration of 9.7 mCi Tc 99m Sestamibi - Cardiolite resting SPE CT images acquired 60 minutes post injection. The patient received 0.4mg Lexiscan, 25.4 mCi Tc 99m Sestamibi - Stress images obtained [address] injection FINDINGS: Review of stress and rest SPECT images demonstrates no distinct perfusion abnormality. Gated analysi s shows normal wall motion with an estimated left ventricular ejection fraction of 55 %. IMPRESSION: No scintigraphic evidence for reversible ischemia. No significant change from prior.
== END | disposition home or self-care (01) ==
LOC: RADNMMAIN 08:20
PROVIDERS: ATTEND Family Medicine
DX: R07.9 Chest pain, unspecified (principal)
CPT/HCPCS: 93017; 78452; A9500; J2785

== ENCOUNTER → 2021-11-01 | Outpatient (CLI) | payer MEDICARE | END | disposition home or self-care (01) | LOC: LABWHC1 13:47 | PROVIDERS: ATTEND Nurse Practitioner Family | DX: Z20.822 Contact with and (suspected) exposure to COVID-19 (principal) | CPT/HCPCS: 87502; U0003; C9803 ==

== ENCOUNTER → 2022-01-13 | Outpatient (CLI) | payer MEDICARE ==
--- NOTE | 2022-01-15 18:29 | PE ---
EXAMINATION TYPE: PET CT fusion skull to thigh DATE OF EXAM: 01/13/2022 COMPARISON: Chest CT August 09, 2021 HISTORY: Abnormal CT, solitary pulmonary nodule. TECHNIQUE: Following the intravenous administration of 10.26 mCi of F-18 FDG, whole body images are performed from the skull base to the midthigh. Images are reviewed on the computer in the coronal, a xial, and sagittal planes. Reconstructed rotating images are created on independent workstation and reviewed on the computer. A localization and attenuation correction CT is performed in conjunction with the PET scan. Blood glucose level equals 67. SCAN: Initial Scan FINDINGS: SKULL BASE AND NECK: No areas of abnormal hypermetabolic uptake. CHEST, MEDIASTINUM, AND HILAR REGION: No areas of abnormal hypermetabolic uptake. Prior nodules all n oted 6 mm or smaller in size on prior CT report on background of at least moderate underlying emphyse matous change are less well seen on PET CT versus diagnostic CT. ABDOMEN AND PELVIS: No adrenal masses. No abnormal hypermetabolic uptake. Normal excretion. OSSEOUS STRUCTURES: No abnormal hypermetabolic uptake. OTHER CT: Prominent pulmonary arteries consistent with underlying pulmonary artery hypertension. Mild to moderate coronary artery calcification. Surgical changes from gastric sleeve. Small size hiatal hernia. Cholecystectomy clips are present. Si gmoid colonic diverticulosis. Mildly enlarged prostate consistent with BPH. Occasional scattered pelv ic phleboliths. Postsurgical change lumbosacral junction. IMPRESSION: No suspicious hypermetabolic uptake to suggest malignancy. Consider follow-up CT in 6-12 months time to document subcentimeter nodular stability.
== END | disposition home or self-care (01) ==
LOC: RADPETMAIN 13:20
PROVIDERS: ATTEND Family Medicine
DX: R91.1 Solitary pulmonary nodule (principal)
CPT/HCPCS: 78815; A9552

== ENCOUNTER → 2022-02-21 | Outpatient (CLI) | payer MEDICARE ==
--- NOTE | 2022-02-21 13:32 | XR ---
EXAM TYPE: LUMBAR SPINE X RAY SERIES COMPARISON: NONE HISTORY: Pain TECHNIQUE: 4 views are submitted. FINDINGS: Alignment is anatomic. The pedicles are intact. The transverse processes are intact. There is grad e 2 spondylolisthesis L4 on L5. Postsurgical changes and diffuse osteopenia noted. There is surgical change in the gallbladder fossa. Moderate degenerative disc disease at levels L1-L5 most marked at L 4-L5. Multilevel facet arthropathy. IMPRESSION: 1. Multilevel moderate degenerative disc disease most marked at L4-L5 with facet arthropathy. There i s a grade 2 anterolisthesis of L4 relative to L5..
== END | disposition home or self-care (01) ==
LOC: RADXRMAIN 13:10
PROVIDERS: ATTEND Family Medicine
DX: M51.16 Intervertebral disc disorders with radiculopathy, lumbar region (principal); M47.26 Other spondylosis with radiculopathy, lumbar region; M43.16 Spondylolisthesis, lumbar region
CPT/HCPCS: 72110

== ENCOUNTER → 2022-03-15 | Outpatient (CLI) | payer MEDICARE ==
--- NOTE | 2022-03-16 02:32 | MR ---
EXAMINATION TYPE: MR lumbar spine wo con DATE OF EXAM: 2 views COMPARISON: None HISTORY: Back pain Multiplanar multi echo imaging of the lumbar spine with no contrast. There is metal artifact from posterior fusion surgery at L4-5. There is a minimal L4-5 spondylolisthe sis that measures 4 mm. There is 8 mm L4-5 spondylolisthesis. There is narrowing of the spinal canal at L4-5 due to the subluxation deformity. Exam limited by metal artifact. Sacroiliac joints are intac t. No lumbar paraspinal mass. No compression fracture. No evidence of focal bone destruction. There is degenerative disc space narrowing throughout the lumbar spine. IMPRESSION: L4-5 and L5-S1 spondylolisthesis. There is L4-5 spinal stenosis due to the subluxation deformity. Pre vious surgery. No fractures seen. Mild posterior disc bulging from L1 to L4 without significant impin gement on the spinal canal.
== END | disposition home or self-care (01) ==
LOC: RADMRIMAIN 00:24
PROVIDERS: ATTEND Nurse Practitioner Family
DX: M51.36 Other intervertebral disc degeneration, lumbar region (principal); M43.16 Spondylolisthesis, lumbar region; M48.061 Spinal stenosis, lumbar region without neurogenic claudication
CPT/HCPCS: 72148

== ENCOUNTER 2022-08-07 22:29 | Emergency (ER) | payer MEDICARE ==
[2022-08-07 22:34] VITALS: RESP 18; TEMP 98.4
[2022-08-07 23:07] LABS: ALT 16 U/L (4-49); AST 25 U/L (17-59); African American GFR (CKD) >90 (>60 ml/min/1.73 sqM); Albumin 4.2 g/dL (3.5-5.0); Alkaline Phosphatase 84 U/L (38-126); Anion Gap 11 mmol/L; Basophils # (A) 0.1 k/uL (0-0.2); Basophils % (A) 1 %; Blood Urea Nitrogen 23 mg/dL (9-20); Carbon Dioxide 28 mmol/L (22-30); Chloride 102 mmol/L (98-107); Eosinophils # (A) 0.4 k/uL (0-0.7); Eosinophils % (A) 5 %; Glucose 97 mg/dL (74-99); HCT 45.9 % (39.0-53.0); Lymphocytes # (A) 2.2 k/uL (1.0-4.8); Lymphocytes % (A) 34 %; MCH 31.2 pg (25.0-35.0); MCHC 32.8 g/dL (31.0-37.0); MCV 95.1 fL (80.0-100.0); Mean Platelet Volume 9.3; Monocytes # (A) 0.6 k/uL (0-1.0); Monocytes % (A) 9 %; Neutrophils # (A) 3.2 k/uL (1.3-7.7); Neutrophils % (A) 48 %; Non-African American GFR(CKD) 86 (>60 ml/min/1.73 sqM); Platelet Count 224 k/uL (150-450); Potassium 4.2 mmol/L (3.5-5.1); RBC 4.83 m/uL (4.30-5.90); RDW 12.2 % (11.5-15.5); Sodium 141 mmol/L (137-145); Total Bilirubin 0.4 mg/dL (0.2-1.3); Total Protein 6.8 g/dL (6.3-8.2); WBC 6.6 k/uL (3.8-10.6)
[2022-08-07 23:13] LABS: INR 0.9 (<1.2)
[2022-08-07 23:14] LABS: Partial Thromboplastin Time 23.9 sec (22.0-30.0); Prothrombin Time 10.2 sec (9.0-12.0)
--- NOTE | 2022-08-07 23:16 | XR ---
EXAMINATION TYPE: XR chest 2V DATE OF EXAM: 08/07/2022 COMPARISON: 07/15/2021 HISTORY: Chest pain TECHNIQUE: 2 views FINDINGS: Heart is normal. Lungs are clear of consolidation. There are no hilar masses. The bony thor ax is intact. No pleural effusion. IMPRESSION: No active cardiopulmonary disease. There is clearing of the mild infiltrates of atelectas is in the lower lung sullivan compared to old exam. There is improved inspiration.
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
[2022-08-08 05:14] VITALS: BP 131/88; PULSE 6
== END 2022-08-08 05:14 | disposition home or self-care (01) ==
LOC: EC 22:29
DX: R07.9 Chest pain, unspecified (principal); R06.02 Shortness of breath; J44.9 Chronic obstructive pulmonary disease, unspecified; E11.9 Type 2 diabetes mellitus without complications; K21.9 Gastro-esophageal reflux disease without esophagitis; I10 Essential (primary) hypertension; I25.2 Old myocardial infarction; M19.90 Unspecified osteoarthritis, unspecified site; Z87.891 Personal history of nicotine dependence; Z88.1 Allergy status to other antibiotic agents; Z88.3 Allergy status to other anti-infective agents; Z91.013 Allergy to seafood; Z79.899 Other long term (current) drug therapy; Z79.51 Long term (current) use of inhaled steroids; Z20.822 Contact with and (suspected) exposure to COVID-19
CPT/HCPCS: 36415; 71046; 80053; 83735; 84484; 85025; 85610; 85730; 87635; 93005; 99285

== ENCOUNTER → 2022-09-20 | Outpatient (CLI) | payer MEDICARE ==
--- NOTE | 2022-09-21 07:27 | CA ---
Transthoracic Echo Report Name: Morgan Trevino Age: 62 Gender: M : 1960 Exam Date: 09/20/2022 13:30 Exam Location: [facility] Ht (in): 67 Wt (lb): 170 Ordering Physician: Cayden Reardon MD Attending/Referring Phys: DENNY, Alexys Tube Teller Kayleen Persaud, ALIYAH Procedure CPT: Indications: J44.9 CHRONIC OBSTRUCTIVE PULMONARY DISEASE Cardiac Hx: Technical Quality: Contrast 1: N/A Total Dose (mL): Contrast 2: Total Dose (mL): MEASUREMENTS (Male / Female) Normal Values 2D ECHO LV Diastolic Diameter PLAX 5.1 cm 4.2 - 5.9 / 3.9 - 5.3 cm LV Systolic Diameter PLAX 3.8 cm IVS Diastolic Thickness 0.7 cm 0.6 - 1.0 / 0.6 - 0.9 cm LVPW Diastolic Thickness 1.2 cm 0.6 - 1.0 / 0.6 - 0.9 cm LV Relative Wall Thickness 0.4 RV Internal Dim ED PLAX 2.2 cm LA Systolic Diameter LX 3.1 cm 3.0 - 4.0 / 2.7 - 3.8 cm LA Volume 64.1 cm??? 18 - 58 / 22 - 52 cm??? M-MODE Aortic Root Diameter MM 2.7 cm LA Systolic Diameter MM 3.6 cm LA Ao Ratio MM 1.3 MV E Point Septal Separation 0.4 cm AV Cusp Separation MM 2.0 cm DOPPLER MV Area PHT 4.2 cm??? Mitral E Point Velocity 45.9 cm/s Mitral A Point Velocity 60.3 cm/s Mitral E to A Ratio 0.8 MV Deceleration Time 180.9 ms MV E' Velocity 5.7 cm/s Mitral E to MV E' Ratio 8.0 TR Peak Velocity 178.7 cm/s TR Peak Gradient 12.8 mmHg Right Ventricular Systolic Press 17.8 mmHg FINDINGS Left Ventricle Left ventricular ejection fraction is estimated at 55 %. Left ventricular cavity size normal. Right Ventricle Normal right ventricular size and function. Right ventricular systolic pressure within normal limits. Right Atrium Normal right atrial size. Left Atrium Mildly increased left atrial volume. Mitral Valve Structurally normal mitral valve. Mild mitral regurgitation. Aortic Valve Trileaflet aortic valve. Tricuspid Valve Structurally normal tricuspid valve. Mild tricuspid regurgitation. Pulmonic Valve Structurally normal pulmonic valve. Pericardium Normal pericardium. Aorta Normal size aortic root and proximal ascending aorta. CONCLUSIONS Normal LV size and systolic function. Mild mitral and tricuspid insufficiency. No pericardial effusion Previewed by: Dr. Corina Desai MD (Electronically Signed) Final Date: 21 September 2022 07:26
== END | disposition home or self-care (01) ==
LOC: RADECHMAIN 13:17
PROVIDERS: ATTEND Family Medicine
DX: I08.1 Rheumatic disorders of both mitral and tricuspid valves (principal); J44.9 Chronic obstructive pulmonary disease, unspecified
CPT/HCPCS: 93306

== ENCOUNTER → 2022-09-22 | Outpatient (CLI) | payer MEDICARE ==
--- NOTE | 2022-09-22 11:06 | CA ---
Lexiscan Nuclear Stress Test Report Name: Morgan Trevino Exam Date: 09/22/2022 09:20 Exam Location: [facility] Ht (in): 67 Wt (lb): 170 BSA: 1.89 Ordering Phys: Cayden Reardon MD Referring Phys: CAYDEN REARDON,, Technologist: Everardo Barahona Age: 62 Gender: M : 1960 Procedure CPT: Indications: I20.9 angina pectoris ICD-10 Codes: Patient History: CHEST PAIN, DIFFICULTY IN BREATHING, NUMBNESS IN FACE/NECK, FAMILY HX OF HEART DISEASE, PRIOR NC, COPD Medications: DUONEB, GABAPENTIN, MONTELKAST, [place]STATIN, PEPCID, ROPINIROLE, SYMBICORT, TRAMADOL, VENTOLIN, ZYRTEC Meds past 24 hrs: Pretest Chest Pain: STRESS TEST Lexiscan Protocol Exercise Duration (min:sec): 01:[address] Depressions (mm): Angina Score: Wu Score: Resting HR (bpm): 56 Peak HR (bpm): 88 Resting BP (mmHg): 144 / 100 Peak BP (mmHg): 144 / 100 MPHR: 159 Target HR: 135 % MPHR: 55 METS: 1.0 Total Dose: Peak Dose: Atropine: Double Product: 34141 BP Response: Stress Termination: INFUSION COMPLETE Stress Symptoms: LIGHT HEADED Stress Summary: ECG ANALYSIS Resting ECG: Stress ECG: CONCLUSIONS Baseline EKG revealed normal sinus rhythm without significant ST-T changes. With Lexiscan administration the heart rate changing from 59-86 bpm and the blood pressure changed from 144/100-137/89. Patient had transient lightheadedness. No significant arrhythmia was noted. This is a unremarkable Lexiscan stress test by EKG criteria. The nuclear scan results which are more pertinent will be reported by the radiologist Dr. Corina Desai MD (Electronically Signed) Final Date: 22 September 2022 11:05
--- NOTE | 2022-09-22 13:14 | NM ---
EXAMINATION TYPE: NM stress lexiscan cardiolite DATE OF EXAM: 09/22/2022 COMPARISON: 09/12/2021 HISTORY: 62-year-old male I20.9, angina pectoris TECHNIQUE: After the intravenous administration of 9.5 mCi Tc 99m Sestamibi - Cardiolite resting SPE CT images acquired 45 minutes post injection. The patient received 0.4mg Lexiscan, 26.7 mCi Tc 99m Sestamibi - Stress images obtained [address] injection FINDINGS: Review of stress and rest SPECT images demonstrates decreased perfusion at the apex. However, this is more pronounced on rest images suggesting attenuation artifact. There is also fixed defect along the basal septal and inferior king suggesting additional attenuation artifact. No discrete reversibilit y is seen. Gated analysis shows normal wall motion with an estimated left ventricular ejection fracti on of 55 %. TID is borderline increased at 1.18. IMPRESSION: 1. Fixed defect at the apex of the heart could represent a chronic infarct, though new compared to versus attenuation artifact. The latter is somewhat favored. Clinically correlate. 2. Additional fixed defect along the basal inferior and septal wall, likely diaphragmatic attenuation . 3. No discrete reversibility is seen. 4. Given borderline increased TID (1.18) and patient's angina symptoms, consider further evaluation a s clinically indicated.
== END | disposition home or self-care (01) ==
LOC: RADNMMAIN 07:45
PROVIDERS: ATTEND Family Medicine
DX: I20.9 Angina pectoris, unspecified (principal)
CPT/HCPCS: 93017; 78452; A9500; J2785

== ENCOUNTER → 2023-02-16 | Outpatient (CLI) | payer MEDICARE ==
--- NOTE | 2023-02-18 12:06 | PE ---
EXAMINATION TYPE: PET CT fusion skull to thigh DATE OF EXAM: 02/16/2023 CLINICAL INDICATION:Male, 62 years old with history of R91.8 NONSPECIFIC ABNORMAL FINDING OF LUNG F; TECHNIQUE: Following the intravenous administration of 11.9 mCi of F-18 FDG, whole body images are performed from the skull base to the midthigh. Images are reviewed on the computer in the coronal, a xial, and sagittal planes. Reconstructed rotating images are created on independent workstation and reviewed on the computer. A non-contrast CT is performed in conjunction with the PET scan. Glucose level 79 mg/dL COMPARISON: CT 08/09/2021, PET/CT 01/15/2022, FINDINGS: Mediastinal SUV mean is 1.4. Hepatic parenchyma SUV mean is 2.1. SKULL BASE AND NECK: No suspicious radiotracer activity. CHEST, MEDIASTINUM, AND HILAR REGION: No suspicious radiotracer activity. Scattered pulmonary densiti es are under the sensitivity of PET/CT. There are calcified pulmonary nodules noted in the left upper lobe and right lower lobe. Some consolidation changes in the right upper lobe along the major fissur e is new compared to prior suggesting superimposed infectious/ventricular process on COPD changes. ABDOMEN AND PELVIS: No suspicious radiotracer activity. OSSEOUS STRUCTURES: No suspicious radiotracer activity. OTHER CT: Atherosclerosis of the arterial vasculature including the coronary arteries. Mild bilateral gynecomastia changes. There is severe emphysema changes in the lung apices. Moderate hiatal hernia. Post surgical changes gastric lumen. Right lower lung calcified granuloma. The gallbladder surgically absent. There is nonobstructing left 3 mm calculus and left probable cyst. Scattered colonic diverti cula present. Fixation hardware in the lower lower spine. IMPRESSION: 1. No suspicious FDG activity. Scattered calcified granulomas within lungs without suspicious FDG ac tivity definitively visualized. Continues surveillance with CT chest is recommended given extensive b ackground of emphysema suggesting a high risk factor patient. 2. Acute/subacute right upper lobe posterior airspace disease suggested superimposed on emphysema. C orrelate with symptoms.
== END | disposition home or self-care (01) ==
LOC: RADPETMAIN 14:40
PROVIDERS: ATTEND Family Medicine
DX: L92.9 Granulomatous disorder of the skin and subcutaneous tissue, unspecified (principal); R91.8 Other nonspecific abnormal finding of lung field; J98.4 Other disorders of lung
CPT/HCPCS: 78815; A9552

== ENCOUNTER → 2023-02-19 | Outpatient (CLI) | payer MEDICARE ==
[2023-02-19 20:37] LABS: HCT 49.1 % (39.6-50.0); HGB 15.4 g/dL (13.0-17.0); MCH 30.1 pg (27.0-32.0); MCHC 31.4 g/dL (32.0-37.0); MCV 95.9 fL (80.0-97.0); Mean Platelet Volume 11.8 fL (9.5-12.2); NRBC Per 100 WBC 0 /100 WBCS (0.0-0.0); Platelet Count 251 X 10*3/uL (140-440); RBC 5.12 X 10*6/uL (4.40-5.60); RDW 12.1 % (11.5-14.5)
[2023-02-20 02:28] LABS: African American GFR (CKD) 97.5 (60.0-200.0); Blood Urea Nitrogen 27.5 mg/dL (9.0-27.0); Carbon Dioxide 25.4 mmol/L (20.0-27.5); Non-African American GFR(CKD) 84.1 (60.0-200.0)
== END | disposition home or self-care (01) ==
LOC: LABWHC1 16:09
PROVIDERS: ATTEND Internal Medicine
DX: Z01.812 Encounter for preprocedural laboratory examination (principal); R07.9 Chest pain, unspecified
CPT/HCPCS: 36415; 80051; 82565; 84520; 85027

== ENCOUNTER → 2023-08-31 | Outpatient (CLI) | payer MEDICARE ==
--- NOTE | 2023-09-03 08:20 | CT ---
EXAMINATION TYPE: CT chest w con DATE OF EXAM: 08/31/2023 COMPARISON: PET CT 02/16/2023 HISTORY: pulmonary nodules, difficulty breathing x [address] DLP: 349.2 mGycm, Automated exposure control for dose reduction was used. CONTRAST: Performed injected with 100 cc mL of Isovue 300. TECHNIQUE: Axial images were obtained at 5 mm thick sections. Reconstructed images are reviewed on [facility] computer in the coronal plane. FINDINGS: Portion of the thyroid visualized is normal. Emphysematous changes are present. There is punctate nodularity within the periphery of the left midlung. Series 4 image 31. Present pre viously. There is a stable 0.3 cm nodule lateral left midlung. Series 4 image 32. There is a 0.5 cm nodule posterior lateral right lower lung field. Series 4 image 47. Present previously. Previous infiltrates have diminished over the interval. Some residual remains within the region of th e right major fissure. No enlarged mediastinal or hilar adenopathy is evident. There are scattered small lymph nodes within the mediastinum. The ascending aorta diameter at the level of the main pulmonary artery is 3.8 cm. [facility] main pulmonary artery diameter at the bifurcation is 3.[address] sections are obtained through the upper abdomen. There is a moderate-sized hiatal hernia. Post gastric surgery sleeve is evident. IMPRESSION: 1. Stable scattered small nodules discussed above. 2. Emphysematous change. 3. Small hiatal hernia.
== END | disposition home or self-care (01) ==
LOC: RADCTMAIN 16:28
PROVIDERS: ATTEND Family Medicine
DX: J43.9 Emphysema, unspecified (principal); K44.9 Diaphragmatic hernia without obstruction or gangrene; R91.8 Other nonspecific abnormal finding of lung field
CPT/HCPCS: 71260; Q9967

== ENCOUNTER 2023-09-28 13:44 | Observation (INO) | payer MEDICARE ==
[2023-09-28] MEDS ORDERED: NITROGLYCERIN OINT 1 INCH/GM PACKET TOPICAL STA (14:00)
[2023-09-28] MEDS ORDERED: ASPIRIN 81 MG PO STA (14:00)
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
[2023-09-28 14:36] LABS: Basophils # (A) 0.1 k/uL (0-0.2); Basophils % (A) 0 %; Eosinophils # (A) 0.1 k/uL (0-0.7); Eosinophils % (A) 1 %; HCT 43.2 % (39.0-53.0); HGB 14.2 gm/dL (13.0-17.5); Lymphocytes # (A) 1.3 k/uL (1.0-4.8); Lymphocytes % (A) 6 %; MCH 31.1 pg (25.0-35.0); MCHC 32.9 g/dL (31.0-37.0); MCV 94.6 fL (80.0-100.0); Mean Platelet Volume 9.4; Monocytes # (A) 0.8 k/uL (0-1.0); Monocytes % (A) 4 %; Neutrophils % (A) 88 %; Platelet Count 225 k/uL (150-450); RBC 4.57 m/uL (4.30-5.90); RDW 12.8 % (11.5-15.5); WBC 21.5 k/uL (3.8-10.6)
[2023-09-28 14:44] LABS: ALT 23 U/L (4-49); AST 27 U/L (17-59); African American GFR (CKD) >90 (>60 ml/min/1.73 sqM); Albumin 3.9 g/dL (3.5-5.0); Alkaline Phosphatase 92 U/L (38-126); Anion Gap 11 mmol/L; Blood Urea Nitrogen 23 mg/dL (9-20); Calcium 9.2 mg/dL (8.4-10.2); Carbon Dioxide 22 mmol/L (22-30); Chloride 104 mmol/L (98-107); Glucose 73 mg/dL (74-99); Lipase 203 U/L (23-300); Magnesium 1.7 mg/dL (1.6-2.3); Non-African American GFR(CKD) >90 (>60 ml/min/1.73 sqM); Potassium 3.6 mmol/L (3.5-5.1); Sodium 137 mmol/L (137-145); Total Bilirubin 1.1 mg/dL (0.2-1.3); Total Protein 6.6 g/dL (6.3-8.2)
--- NOTE | 2023-09-28 14:48 | XR ---
EXAMINATION TYPE: XR chest 2V DATE OF EXAM: 09/28/2023 COMPARISON: 08/07/2022 HISTORY: Chest pain TECHNIQUE: Frontal and lateral views of the chest are obtained. FINDINGS: There is ill-defined bandlike opacities in the right middle lobe and left lung base which were seen p reviously and most likely reflect chronic changes. There is no acute consolidative/airspace opacity. There is no pleural effusion, pleural thickening or pneumothorax. The heart only vasculature are normal. The osseous structures are intact. IMPRESSION: 1. Chronic changes as described above. Stable compared to previous. 2. No acute cardiopulmonary disease.
[2023-09-28 14:52] LABS: NT-Pro-B-Type Natriuretic Pept 126 pg/mL
[2023-09-28 15:00] LABS: INR 0.9 (<1.2); Prothrombin Time 10.5 sec (10.0-12.5)
--- NOTE | 2023-09-28 15:58 | CT ---
EXAMINATION TYPE: CT brain wo con DATE OF EXAM: 09/28/2023 COMPARISON: 07/16/2019 HISTORY: chest pain and headache CT DLP: 1164.4 mGycm Automated exposure control for dose reduction was used. FINDINGS: The ventricles, basal cisterns and sulci over the convexities within normal limits and there is no ma ss effect or shift of midline structures. No abnormal density is seen throughout the brain parenchyma. There is no acute intra or extra-axial h emorrhage. The posterior fossa is grossly normal. Intraorbital contents appear normal and symmetric. Visualized paranasal sinuses and mastoid air cells are well aerated IMPRESSION: NO ACUTE BLEED OR MASS EFFECT.
--- NOTE | 2023-09-28 16:04 | CT ---
EXAMINATION TYPE: CT angio chest DATE OF EXAM: 09/28/2023 3:47 PM COMPARISON: Chest CT 08/31/2023 HISTORY: chest pain, sob, elevated d-dimer, hx of thoracic aneurysm. CT DLP: 398.7 mGycm Automated exposure control for dose reduction was used. CONTRAST: CTA scan of the thorax is performed with IV Contrast, patient injected with 100 mL of Isovue 370, pul monary embolism protocol. . FINDINGS: There are marked emphysematous changes predominantly in the upper lobes. There is been interval development of diffuse groundglass density in the right mid and lower lung zon es suggest the presence of an acute inflammatory process. There is no pleural effusion, pleural thickening or pneumothorax. The great vessels chest are normal is no mediastinal, hilar or axillary adenopathy. There are no filling defects within the pulmonary arteries or branches to suggest pulmonary embolism. There is a large hiatal hernia. There is scanning through the upper abdomen reveals cholecystectomy. No focal osseous lesions are seen. IMPRESSION: 1. No evidence of pulmonary embolism. 2. Interval development of diffuse groundglass density in the right mid lower lung zone suggesting ac [place] inflammatory process. 3. Large hiatal hernia. 4. Marked emphysematous changes.
[2023-09-28] MEDS ORDERED: PNEUMONIA PROTOCOL UTILIZED 1 EACH MISC PO PRN (17:41)
[2023-09-28] MEDS ORDERED: LEVOFLOXACIN 750MG-D5W PMX 750 MG in DEXTROSE/WATER 1 150ML.BAG IVPB STA (17:41)
[2023-09-28] MEDS ORDERED: NALOXONE 0.4 MG/ML 1 ML VIAL IV PRN (17:41)
[2023-09-28] MEDS: SODIUM CHLORIDE 0.9% 1,000 ML IV SCH (18:25)
[2023-09-28] MEDS: BACLOFEN 10 MG TAB PO SCH (21:45)
[2023-09-28] MEDS: traMADol 50 MG TAB PO SCH (21:45)
[2023-09-28] MEDS: GABAPENTIN 400 MG CAP PO SCH (21:46)
[2023-09-29] MEDS: SODIUM CHLORIDE 0.9% 1,000 ML IV SCH ×3 (00:43→19:18)
[2023-09-29] MEDS: GABAPENTIN 400 MG CAP PO SCH ×3 (05:58→20:46)
[2023-09-29] MEDS: BACLOFEN 10 MG TAB PO SCH ×3 (05:58→20:45)
[2023-09-29] MEDS: traMADol 50 MG TAB PO SCH ×4 (05:58→20:45)
[2023-09-29] MEDS: SYMBICORT 160-4.5 MCG INHALER INHALATION SCH ×2 (08:53→21:36)
[2023-09-29 09:11] LABS: Blood Urea Nitrogen 18.8 mg/dL (9.0-27.0); Calcium 8.3 mg/dL (8.7-10.3); Carbon Dioxide 23.5 mmol/L (21.6-31.8); Chloride 107 mmol/L (96-109); Glucose 83 mg/dL (70-110); Potassium 4.2 mmol/L (3.5-5.5); Sodium 138 mmol/L (135-145)
[2023-09-29] MEDS: ATORVASTATIN 40 MG TAB PO SCH (09:41)
[2023-09-29] MEDS: CALCIUM CARBONATE 500 MG CHEWABLE PO SCH ×2 (09:41→20:43)
[2023-09-29] MEDS: ASPIRIN 81 MG PO SCH (09:41)
[2023-09-29] MEDS: ISOSORBIDE MONONITRATE ER 15 MG TAB PO SCH ×2 (09:41→20:44)
[2023-09-29] MEDS: CHOLECALCIFEROL 25 MCG (1000 IU) TABLET PO SCH (09:41)
[2023-09-29] MEDS: LORATADINE 10 MG TAB PO SCH (09:41)
[2023-09-29] MEDS: FAMOTIDINE 20 MG TAB PO SCH ×2 (09:41→20:43)
[2023-09-29] MEDS: MULTIVITAMINS, THERA 1 EACH TAB PO SCH (09:41)
[2023-09-29] MEDS: VITAMIN A 10,000 UNIT (3000 MCG) CAPSULE PO SCH (09:42)
--- NOTE | 2023-09-29 10:05 | XR ---
EXAMINATION TYPE: XR chest 2V DATE OF EXAM: 09/29/2023 COMPARISON: 09/28/2023 HISTORY: 63-year-old male pneumonia, cough TECHNIQUE: Frontal and lateral views FINDINGS: Heart normal size. Aorta and pulmonary vasculature within normal limits. Patchy interstitial changes right greater than left lower lungs persists. No pleural effusion. Relative upper lung lucencies may reflect underlying emphysema. IMPRESSION: COPD with superimposed patchy and interstitial infiltrates in the right greater than left lower lungs . Consider pneumonia including atypical/COVID pneumonia.
[2023-09-29 10:17] LABS: Basophils # (A) 0.03 X 10*3/uL (0.00-0.10); Basophils % (A) 0.2 %; Eosinophils # (A) 0.14 X 10*3/uL (0.04-0.35); Eosinophils % (A) 1.2 %; HCT 40.8 % (39.6-50.0); HGB 13.2 g/dL (13.0-17.0); Lymphocytes # (A) 1.84 X 10*3/uL (0.90-5.00); Lymphocytes % (A) 15.3 %; MCH 31.1 pg (27.0-32.0); MCHC 32.4 g/dL (32.0-37.0); MCV 96.2 FL (80.0-97.0); Mean Platelet Volume 11.8 FL (9.5-12.2); Monocytes # (A) 0.71 X 10*3/uL (0.20-1.00); Monocytes % (A) 5.9 %; NRBC Per 100 WBC 0 X 10*3/uL (0.00-0.01); Neutrophils # (A) 9.28 X 10*3/uL (1.80-7.70); Platelet Count 203 X 10*3/uL (140-440); RBC 4.24 X 10*6/uL (4.40-5.60); RDW 12.6 % (11.5-14.5); WBC 12.05 X 10*3/uL (4.50-10.00)
[2023-09-29] MEDS: LEVOFLOXACIN 750 MG TAB PO SCH (10:32)
[2023-09-29] MEDS: METOPROLOL SUCCINATE (ER) 25 MG TAB.ER.24H PO SCH ×2 (14:06→20:44)
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
[2023-09-29] MEDS ORDERED: MONTELUKAST 10 MG TAB PO SCH (21:00)
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
--- NOTE | 2023-09-29 21:04 | P.PN ---
Subjective Progress Note Date: 09/29/23 63-year-old male presenting to the emergency Department with chest discomfort. Onset was around 10 AM. Symptoms have been waxing me. Discomfort is currently 3/10. Patient states discomfort does feel like pressure. There is some pressure in his upper back as well. Patient states symptoms do worsen with exertion. Patient does have some associated dyspnea. No nausea. No diaphoresis. No history of similar symptoms previously. No calf pain. In the emergency department, the patient was found to have a the white cell count of 21.5 with a hemoglobin of 14.2 and a platelet count of 225. BUN is at 23 with a creatinine of 0.8 and sodium levels is 137. CAT scan of the chest was done and it showed emphysema in the background. There is also a large hiatal hernia. There is also interval development of diffuse groundglass density the right middle lobe and the lower lobe zones consistent with an acute pneumonia. Patient is started on IV Levaquin and is being admitted for further treatment and pulmonary evaluation Objective - Vital Signs Vital signs: Vital Signs Temp 97.7 F 09/29/23 07:00 Pulse 56 L 09/29/23 07:00 Resp 12 09/29/23 07:00 BP 110/67 09/29/23 07:00 Pulse Ox 95 09/29/23 07:00 FiO2 Intake & Output 09/28/23 09/29/23 09/29/23 18:59 06:59 18:59 Weight 77.111 kg Other: Voiding Method Toilet # Voids 0 # Bowel Movements 0 - Exam Head exam was generally normal. There was no scleral icterus or corneal arcus. Mucous membranes were moist. Neck was supple and without jugular venous distension, thyromegaly, or carotid bruits. Carotids were easily palpable bilaterally. There was no adenopathy. Lungs sounds are diminished bilaterally otherwise clear Cardiac exam revealed the PMI to be normally situated and sized. The rhythm was regular and no extrasystoles were noted during several minutes of auscultation. The first and second heart sounds were normal and physiologic splitting of the second heart sound was noted. There were no murmurs, rubs, clicks, or gallops. Abdominal exam revealed normal bowel sounds. The abdomen was soft, non-tender, and without masses, organomegaly, or appreciable enlargement of the abdominal aorta. Examination of the extremities revealed easily palpable radial, femoral and pedal pulses. There was no cyanosis, clubbing or edema. Examination of the skin revealed no evidence of significant rashes, suspicious appearing nevi or other concerning lesions. Neurologically, the patient is awake and alert and the patient does not have any focal neurological deficit. Cranial nerves are essentially intact. - Labs CBC & Chem 7: 09/29/23 05:57 09/29/23 05:57 Labs: Abnormal Lab Results - Last 24 Hours (Table) 09/28/23 09/28/23 09/28/23 Range/Units 14:09 14:09 14:09 WBC 21.5 H (3.8-10.6) k/uL RBC (4.40-5.60) X 10*6/uL Immature Gran # (0.00-0.04) X 10*3/uL Neutrophils # 19.0 H (1.3-7.7) k/uL D-Dimer 1.86 H (<0.60) mg/L FEU BUN 23 H (9-20) mg/dL BUN/Creatinine Ratio (12.00-20.00) Ratio Glucose 73 L (74-99) mg/dL Plasma Lactic Acid Boubacar (0.7-2.0) mmol/L Calcium (8.7-10.3) mg/dL 09/28/23 09/29/23 09/29/23 Range/Units 18:04 05:57 05:57 WBC 12.05 H (3.8-10.6) k/uL RBC 4.24 L (4.40-5.60) X 10*6/uL Immature Gran # 0.05 H (0.00-0.04) X 10*3/uL Neutrophils # 9.28 H (1.3-7.7) k/uL D-Dimer (<0.60) mg/L FEU BUN (9-20) mg/dL BUN/Creatinine Ratio 23.50 H (12.00-20.00) Ratio Glucose (74-99) mg/dL Plasma Lactic Acid Boubacar 3.7 H* (0.7-2.0) mmol/L Calcium 8.3 L (8.7-10.3) mg/dL Assessment and Plan Assessment: 1. Bilateral pneumonia - Patient has been placed on Levaquin 750 mg daily - Sputum culture, blood cultures are ordered; monitor CBC, CMP and pro- calcitonin - Symptomatic treatment with antitussive therapy; bronchodilator nebulizer treatments - Consult pulmonary for further recommendations 2. Acute hypoxic respiratory failure - Currently on O2 at 2 L per nasal cannula; we will plan to titrate her venous able 3. COPD; not in exacerbation; continue with home inhaler therapy in form of Symbicort 1601.5 mg twice a day; Singulair 10 mg daily 4. Diabetes mellitus type 2; monitor Accu-Cheks before meals and at bedtime with insulin sliding scale 5. Hypertension; metoprolol 25 mg daily; Imdur 30 mg daily 6. Hyperlipidemia; Lipitor 40 mg daily at bedtime 7. Obstructive sleep apnea; patient not using CPAP 8. Restless leg syndrome; Requip 0.25 mg daily at bedtime 9. Coronary artery disease; stable on aspirin, statins and beta blockers DVT prophylaxis; SCDs/subcu heparin CODE STATUS; full code
[2023-09-30] MEDS: traMADol 50 MG TAB PO SCH ×2 (03:54→10:15)
[2023-09-30] MEDS: SODIUM CHLORIDE 0.9% 1,000 ML IV SCH ×2 (03:55→10:14)
[2023-09-30] MEDS: GABAPENTIN 400 MG CAP PO SCH (06:05)
[2023-09-30] MEDS: BACLOFEN 10 MG TAB PO SCH (06:05)
[2023-09-30] MEDS: SYMBICORT 160-4.5 MCG INHALER INHALATION SCH (08:47)
[2023-09-30 09:00] VITALS: BP 142/83; PULSE 60; RESP 16; TEMP 97.6
[2023-09-30] MEDS: ASPIRIN 81 MG PO SCH (09:02)
[2023-09-30] MEDS: CHOLECALCIFEROL 25 MCG (1000 IU) TABLET PO SCH (09:02)
[2023-09-30] MEDS: ATORVASTATIN 40 MG TAB PO SCH (09:02)
[2023-09-30] MEDS: FAMOTIDINE 20 MG TAB PO SCH (09:02)
[2023-09-30] MEDS: CALCIUM CARBONATE 500 MG CHEWABLE PO SCH (09:02)
[2023-09-30] MEDS: VITAMIN A 10,000 UNIT (3000 MCG) CAPSULE PO SCH (09:03)
[2023-09-30] MEDS: ISOSORBIDE MONONITRATE ER 15 MG TAB PO SCH (09:03)
[2023-09-30] MEDS: LEVOFLOXACIN 750 MG TAB PO SCH (09:03)
[2023-09-30] MEDS: MULTIVITAMINS, THERA 1 EACH TAB PO SCH (09:08)
[2023-09-30] MEDS: METOPROLOL SUCCINATE (ER) 25 MG TAB.ER.24H PO SCH (09:08)
[2023-09-30] MEDS: LORATADINE 10 MG TAB PO SCH (09:08)
[2023-09-30 09:30] LABS: Blood Urea Nitrogen 15.6 mg/dL (9.0-27.0); Calcium 8.4 mg/dL (8.7-10.3); Carbon Dioxide 22.2 mmol/L (21.6-31.8); Chloride 108 mmol/L (96-109); Glucose 81 mg/dL (70-110); Potassium 4.2 mmol/L (3.5-5.5); Sodium 139 mmol/L (135-145)
[2023-09-30 09:38] LABS: Basophils # (A) 0.02 X 10*3/uL (0.00-0.10); Basophils % (A) 0.3 %; Eosinophils # (A) 0.17 X 10*3/uL (0.04-0.35); Eosinophils % (A) 2.2 %; HCT 39.7 % (39.6-50.0); HGB 12.8 g/dL (13.0-17.0); Lymphocytes # (A) 1.88 X 10*3/uL (0.90-5.00); Lymphocytes % (A) 24.2 %; MCH 31.2 pg (27.0-32.0); MCHC 32.2 g/dL (32.0-37.0); MCV 96.8 FL (80.0-97.0); NRBC Per 100 WBC 0 X 10*3/uL (0.00-0.01); Neutrophils # (A) 4.97 X 10*3/uL (1.80-7.70); Neutrophils % (A) 63.9 %; Platelet Count 207 X 10*3/uL (140-440); RDW 12.7 % (11.5-14.5); WBC 7.77 X 10*3/uL (4.50-10.00)
--- NOTE | 2023-09-30 12:47 | P.PN ---
Subjective Progress Note Date: 09/30/23 63-year-old male patient came into the emergency department because of hypoxemia and shortness of breath. The patient was treated on outpatient basis steroids and antibiotics. The patient also had some chest discomfort. No fever or chills. No hemoptysis or pleurisy. He is known to have COPD. He is also known to have obstructive sleep apnea and the patient has undergone bariatric surgery and has lost considerable amount of weight and the patient's is not utilizing CPAP therapy at this point in time. Patient is doing well for the time being. In the emergency department, the patient was found to have a the white cell count of 21.5 with a hemoglobin of 14.2 and a platelet count of 225. BUN is at 23 with a creatinine of 0.8 and sodium levels is 137. CAT scan of the chest was done and it showed emphysema in the background. There is also a large hiatal hernia. There is also interval development of diffuse groundglass density the right middle lobe and the lower lobe zones consistent with an acute pneumonia. The patient had an earlier CAT scan back in August 2023 that did not show t hose abnormalities. As such, the findings are rather acute. Patient is currently on Levaquin. He is receiving Levaquin 750 mg by mouth daily. Is currently on 2 L of oxygen by nasal cannula with a pulse ox of 99%. No aspiration. No travel. Troponins are negative. The vital screening was negat jayna for influenza, Covid 19 and RSV. On 09/30/2023, no new complaints and the patient is currently on room air oxygen. No chest pain. No cough or sputum production. Remains on Levaquin. The pro-calcitonin level was elevated at 1.52 indicating possibility of a bacterial pneumonia. Sodium levels of 139, BUN 15 with a creatinine of 0.8, the white cell count at 7.7 with a hemoglobin of 12.8. The patient is also specific complaints. No fever. No chills. No hemoptysis. No pleurisy. Objective - Vital Signs Vital signs: Vital Signs Temp 97.6 F 09/30/23 07:00 Pulse 60 09/30/23 07:00 Resp 16 09/30/23 07:00 BP 142/83 09/30/23 07:00 Pulse Ox 98 09/30/23 08:48 FiO2 Intake & Output 1209/30/23 09/30/23 18:59 06:59 18:59 Intake Total 1280 Balance 1280 Intake: Intake, IV Titration 1040 Amount Sodium Chloride 0.9% 1, 1040 000 ml @ 130 mls/hr IV . Q7H42M EMILY Rx#:[id number] Oral 240 Other: # Voids 1 - Exam Calm and comfortable on 2 L of O2 nasal cannula Head exam was generally normal. There was no scleral icterus or corneal arcus. Mucous membranes were moist. Neck was supple and without jugular venous distension, thyromegaly, or carotid bruits. Carotids were easily palpable bilaterally. There was no adenopathy. Lungs sounds are diminished bilaterally otherwise clear Cardiac exam revealed the PMI to be normally situated and sized. The rhythm was regular and no extrasystoles were noted during several minutes of auscultation. The first and second heart sounds were normal and physiologic splitting of the second heart sound was noted. There were no murmurs, rubs, clicks, or gallops. Abdominal exam revealed normal bowel sounds. The abdomen was soft, non-tender, and without masses, organomegaly, or appreciable enlargement of the abdominal aorta. Examination of the extremities revealed easily palpable radial, femoral and pedal pulses. There was no cyanosis, clubbing or edema. Examination of the skin revealed no evidence of significant rashes, suspicious appearing nevi or other concerning lesions. Neurologically, the patient is awake and alert and the patient does not have any focal neurological deficit. Cranial nerves are essentially intact. - Labs CBC & Chem 7: 09/30/23 04:00 09/30/23 04:00 Labs: Abnormal Lab Results - Last 24 Hours (Table) 09/29/23 09/30/23 09/30/23 Range/Units 05:57 04:00 04:00 RBC 4.10 L (4.40-5.60) X 10*6/uL Hgb 12.8 L (13.0-17.0) g/dL Calcium 8.4 L (8.7-10.3) mg/dL Procalcitonin 1.52 H (0.02-0.09) ng/mL Microbiology - Last 24 Hours (Table) 09/28/23 18:04 Blood Culture - Preliminary Blood 09/28/23 18:04 Blood Culture - Preliminary Blood Assessment and Plan Plan: Acute bilateral pneumonia, likely atypical/viral, likely bacterial. Pro-calci tonin level is at 1.5 and the patient is on Levaquin, clinically improved Acute hypoxic respiratory failure currently on room air oxygen COPD, chronic, ex-smoker History of morbid obesity post bariatric surgery and the patient has lost considerable amount of weight Previous history of obstructive sleep apnea, not utilizing CPAP therapy at this point in time Diabetes mellitus type 2 Hypertension Osteoarthritis Hyperlipidemia Plan Continue Levaquin Check blood cultures are negative White cell count is improving Wean FiO2 to room air Resume all medications Discharge home on Levaquin to be followed up on outpatient basis with a follow- up chest x-ray
== END 2023-09-30 13:41 | disposition home or self-care (01) ==
LOC: EC 13:44 → 6NMEDSUR 17:41
PROVIDERS: ADMIT Internal Medicine; ATTEND Internal Medicine
DX: J18.9 Pneumonia, unspecified organism (principal); J96.01 Acute respiratory failure with hypoxia; J43.9 Emphysema, unspecified; K44.9 Diaphragmatic hernia without obstruction or gangrene; G47.33 Obstructive sleep apnea (adult) (pediatric); I25.110 Atherosclerotic heart disease of native coronary artery with unstable angina pectoris; I10 Essential (primary) hypertension; M19.90 Unspecified osteoarthritis, unspecified site; E78.5 Hyperlipidemia, unspecified; E11.9 Type 2 diabetes mellitus without complications; G25.81 Restless legs syndrome; K21.9 Gastro-esophageal reflux disease without esophagitis; I25.2 Old myocardial infarction; R41.3 Other amnesia; M21.371 Foot drop, right foot; Z11.52 Encounter for screening for COVID-19; Z79.82 Long term (current) use of aspirin; Z79.891 Long term (current) use of opiate analgesic; Z79.51 Long term (current) use of inhaled steroids; Z79.899 Other long term (current) drug therapy; Z88.1 Allergy status to other antibiotic agents; Z88.8 Allergy status to other drugs, medicaments and biological substances; Z91.018 Allergy to other foods; Z86.39 Personal history of other endocrine, nutritional and metabolic disease; Z90.49 Acquired absence of other specified parts of digestive tract; Z98.84 Bariatric surgery status; Z87.01 Personal history of pneumonia (recurrent); Z98.890 Other specified postprocedural states; Z87.828 Personal history of other (healed) physical injury and trauma; Z80.6 Family history of leukemia; Z80.3 Family history of malignant neoplasm of breast
CPT/HCPCS: 96361; 96365; 96366; 99285; 36415; 94640 ×3; 94760; 93005; 85379; 83880; 80053; 80048 ×2; 87449; 83605; 83690; 83735; 84484; 85025 ×3; 85610; 85730; 87040; 84145; 87636; 71046 ×2; 70450; 71275; G0378 ×3; J1956; Q9967

== ENCOUNTER → 2023-10-05 | Outpatient (CLI) | payer MEDICARE ==
--- NOTE | 2023-10-05 10:01 | US ---
EXAMINATION TYPE: US duplex aorta DATE OF EXAM: 10/05/2023 COMPARISON: CT Chest CLINICAL INDICATION: Male, 63 years old with history of Z13.6 ENCOUNTER FOR SCREENING FOR CARDIOVASCU LAR D; AAA screening TECHNIQUE: Multiple sonographic images of the abdominal aorta are obtained. FINDINGS: EXAM MEASUREMENTS: Abdominal Aorta: Proximal: 2.1 x 2.3 cm Mid: 2.0 x 1.9 cm Distal: 1.7 x 1.8 cm Bifurcation: Right Illiac: 1.2 x 1.3 cm Left Illiac: 1.1 x 1.2 cm DIRECTOR DANCE NOTES: No evidence of AAA, proximal portion partially gassed out IMPRESSION: No evidence for aortic aneurysm.
== END | disposition home or self-care (01) ==
LOC: RADUSWWP 07:32
PROVIDERS: ATTEND Family Medicine
DX: Z13.6 Encounter for screening for cardiovascular disorders (principal)
CPT/HCPCS: 93979

== ENCOUNTER 2024-02-19 09:14 | Day surgery (SDC) | payer MEDICARE ==
[2024-02-15 15:42] VITALS: BMI 26.6
[2024-02-19] MEDS: LACTATED RINGERS 1,000 ML IV SCH (09:53)
[2024-02-19 09:54] LABS: Glucose,Whole Blood 82 mg/dL (70-110)
[2024-02-19] MEDS ORDERED: PROPOFOL 10 MG/ML 20 ML VIAL IV ONE (10:11)
[2024-02-19] MEDS ORDERED: LIDOCAINE 2% (PF) 20 MG/ML 5 ML VIAL ONE (10:11)
[2024-02-19 10:21] VITALS: TEMP 97.1
--- NOTE | 2024-02-19 10:23 | P.PCN ---
Date of Procedure: 02/19/24 Procedure(s) Performed: Preoperative Dx: GERD Postoperative Dx: Hiatal hernia, gastritis, small gastric nodule Procedure: EGD with Bx Anesthesia: Sedation Endoscopist: Dr. Taylor Specimens: Antrum, gastric nodule Endoscopic Procedure: The patient was on the endoscopy table in the left decubitus position. The Olympus gastroscope was inserted into the oropharynx and passed under direct visualization to the region of the third portion of the duodenum. From that point the scope was slowly withdrawn inspecting all surfaces carefully. There were no neoplastic inflammatory or polypoid lesions throughout the duodenum. The pylorus was widely patent. The stomach was carefully inspected. There was mild gastritis present. A small nodule along the staple line was noted and biopsied. Antrum was also biopsied. No retroflexion took place. As we withdrew the scope we found the GE junction to be present at 35 cm. This is consistent with a CAT scan showing a hiatal hernia. The patient's esophagus was slightly tortuous but otherwise normal. The patient was then taken to the recovery room in stable condition per anesthesia guidelines. Recommendations: Await biopsy results. Continue antiacids. Patient may require repair recurrent hiatal hernia with possible conversion to gastric bypass. Will discuss further with patient.
[2024-02-19 11:35] LABS: Glucose,Whole Blood 82 mg/dL (70-110)
[2024-02-19 11:50] VITALS: BP 131/79; PULSE 49; RESP 18
== END 2024-02-19 11:34 | disposition home or self-care (01) ==
LOC: ORWHC2ENDO 09:14
PROVIDERS: ATTEND Surgery
DX: K29.50 Unspecified chronic gastritis without bleeding (principal); K44.9 Diaphragmatic hernia without obstruction or gangrene; K21.9 Gastro-esophageal reflux disease without esophagitis; J44.89 Other specified chronic obstructive pulmonary disease; G47.33 Obstructive sleep apnea (adult) (pediatric); E11.9 Type 2 diabetes mellitus without complications; F03.90 Unspecified dementia, unspecified severity, without behavioral disturbance, psychotic disturbance, mood disturbance, and anxiety; M21.371 Foot drop, right foot; Z79.51 Long term (current) use of inhaled steroids; Z79.82 Long term (current) use of aspirin; Z79.899 Other long term (current) drug therapy; Z90.49 Acquired absence of other specified parts of digestive tract; Z79.1 Long term (current) use of non-steroidal anti-inflammatories (NSAID); Z98.84 Bariatric surgery status; Z88.1 Allergy status to other antibiotic agents; Z88.8 Allergy status to other drugs, medicaments and biological substances; Z91.013 Allergy to seafood
CPT/HCPCS: 88305; 43239; J2704; J2001

== ENCOUNTER → 2025-03-19 | Outpatient (CLI) | payer MEDICARE ==
--- NOTE | 2025-03-19 15:23 | XR ---
EXAMINATION TYPE: XR chest 2V DATE OF EXAM: 03/19/2025 12:48 PM COMPARISON: 10/26/2023 CLINICAL INDICATION: Male, 64 years old with history of J44.9 CHRONIC OBSTRUCTIVE PULMONARY DISEASE, UNSPE, , TECHNIQUE: Frontal and lateral views FINDINGS: Heart normal size. Aorta within normal limits. Hyperinflation. Hazy lower lung densities likely relat e to overlying soft tissue. No consolidation or pleural effusion seen. Stable nodularity periphery of the right base, suspected calcified granuloma. IMPRESSION: COPD. No definite acute process. [facility] Keron Menchaca, Workstation: [email or web address], 03/19/2025 3:21 PM
== END | disposition home or self-care (01) ==
LOC: RADXRMAIN 12:31
PROVIDERS: ATTEND Family Medicine
DX: J44.9 Chronic obstructive pulmonary disease, unspecified (principal)
CPT/HCPCS: 71046